=== PATIENT | female | born 1970 | race Caucasian/White ===

== ENCOUNTER → 2019-05-26 08:36 | Outpatient (BNVA) | payer BC, SELFPAY | PROVIDERS: Family Provider Nurse Practitioner Family; Visit Provider Nurse Practitioner Family | DX: I10 Essential (primary) hypertension (principal); E78.5 Hyperlipidemia, unspecified; E11.65 Type 2 diabetes mellitus with hyperglycemia; R53.83 Other fatigue; G47.33 Obstructive sleep apnea (adult) (pediatric); K29.60 Other gastritis without bleeding; J30.2 Other seasonal allergic rhinitis; E03.9 Hypothyroidism, unspecified | CPT/HCPCS: 80053; 80061; 82044; 82306; 83036; 84443; 85025 ==

== ENCOUNTER → 2019-06-16 08:18 | Outpatient (BNVA) | payer BC, SELFPAY | PROVIDERS: Visit Provider Nurse Practitioner Family | DX: E87.1 Hypo-osmolality and hyponatremia (principal) | CPT/HCPCS: 80048 ==

== ENCOUNTER → 2019-06-23 08:27 | Outpatient (BNVA) | payer BC, SELFPAY | PROVIDERS: Visit Provider Nurse Practitioner Family | DX: E87.1 Hypo-osmolality and hyponatremia (principal) | CPT/HCPCS: 80048 ==

== ENCOUNTER → 2019-07-25 11:09 | Outpatient (BNVA) | payer BC, SELFPAY | PROVIDERS: Visit Provider Nurse Practitioner Family | DX: E87.6 Hypokalemia (principal) | CPT/HCPCS: 80053 ==

== ENCOUNTER → 2019-08-23 12:51 | Outpatient (BNVA) | payer BC, SELFPAY | PROVIDERS: Visit Provider Nurse Practitioner Family | DX: E11.65 Type 2 diabetes mellitus with hyperglycemia (principal); E03.9 Hypothyroidism, unspecified | CPT/HCPCS: 36416; 80053; 80061; 82962; 83036; 84443; 85025 ==

== ENCOUNTER → 2019-09-06 09:43 | Outpatient (BNVA) | payer BC, SELFPAY | PROVIDERS: PCP Nurse Practitioner Family; Visit Provider Nurse Practitioner Family | DX: E87.1 Hypo-osmolality and hyponatremia (principal); I10 Essential (primary) hypertension | CPT/HCPCS: 80053 ==

== ENCOUNTER → 2019-09-22 09:18 | Outpatient (BNVA) | payer BC, SELFPAY | PROVIDERS: PCP Nurse Practitioner Family; Visit Provider Nurse Practitioner Family | DX: E87.1 Hypo-osmolality and hyponatremia (principal) | CPT/HCPCS: 80048 ==

== ENCOUNTER → 2020-01-10 10:34 | Outpatient (BNVA) | payer BC, SELFPAY | PROVIDERS: PCP Nurse Practitioner Family; Visit Provider Nurse Practitioner | DX: E11.65 Type 2 diabetes mellitus with hyperglycemia (principal); I10 Essential (primary) hypertension; M50.10 Cervical disc disorder with radiculopathy, unspecified cervical region; J30.1 Allergic rhinitis due to pollen; I63.9 Cerebral infarction, unspecified | CPT/HCPCS: 80053; 80061; 81000; 83036; 84443; 85025 ==

== ENCOUNTER → 2020-04-17 14:16 | Outpatient (BNVA) | payer BC, SELFPAY | PROVIDERS: PCP Nurse Practitioner; Visit Provider Nurse Practitioner | DX: E11.65 Type 2 diabetes mellitus with hyperglycemia (principal); E11.69 Type 2 diabetes mellitus with other specified complication; I10 Essential (primary) hypertension; G47.00 Insomnia, unspecified; E78.5 Hyperlipidemia, unspecified; E87.1 Hypo-osmolality and hyponatremia; E87.6 Hypokalemia; E03.9 Hypothyroidism, unspecified; J30.1 Allergic rhinitis due to pollen; I63.9 Cerebral infarction, unspecified | CPT/HCPCS: 80053; 81003; 83036 ==

== ENCOUNTER → 2020-06-21 12:07 | Outpatient (BNVA) | payer BC, SELFPAY | PROVIDERS: PCP Nurse Practitioner; Visit Provider Nurse Practitioner | DX: L03.90 Cellulitis, unspecified (principal); E11.65 Type 2 diabetes mellitus with hyperglycemia; B37.9 Candidiasis, unspecified; B37.3 Candidiasis of vulva and vagina | CPT/HCPCS: 85025 ==

== ENCOUNTER → 2020-07-16 13:23 | Outpatient (BNVA) | payer OTHER, SELFPAY | PROVIDERS: PCP Nurse Practitioner; Visit Provider Nurse Practitioner | DX: E11.65 Type 2 diabetes mellitus with hyperglycemia (principal); I10 Essential (primary) hypertension; G47.00 Insomnia, unspecified; E11.69 Type 2 diabetes mellitus with other specified complication; E78.5 Hyperlipidemia, unspecified; J30.1 Allergic rhinitis due to pollen; I63.9 Cerebral infarction, unspecified; B37.3 Candidiasis of vulva and vagina; I69.30 Unspecified sequelae of cerebral infarction; E03.9 Hypothyroidism, unspecified; Z91.11 Patient's noncompliance with dietary regimen | CPT/HCPCS: 80053; 80061; 81000; 83036 ==

== ENCOUNTER → 2020-10-01 09:23 | Outpatient (BNVA) | payer OTHER, SELFPAY | PROVIDERS: PCP Nurse Practitioner; Visit Provider Nurse Practitioner | DX: I10 Essential (primary) hypertension (principal); E11.65 Type 2 diabetes mellitus with hyperglycemia; G47.00 Insomnia, unspecified; E11.69 Type 2 diabetes mellitus with other specified complication; E78.5 Hyperlipidemia, unspecified; J30.1 Allergic rhinitis due to pollen; I69.30 Unspecified sequelae of cerebral infarction; B37.3 Candidiasis of vulva and vagina; B37.9 Candidiasis, unspecified; K29.60 Other gastritis without bleeding | CPT/HCPCS: 80053; 81000; 83036 ==

== ENCOUNTER → 2020-12-24 09:09 | Outpatient (BNVA) | payer OTHER, SELFPAY | PROVIDERS: PCP Nurse Practitioner; Visit Provider Nurse Practitioner | DX: E11.65 Type 2 diabetes mellitus with hyperglycemia (principal); I10 Essential (primary) hypertension; B37.3 Candidiasis of vulva and vagina; G47.00 Insomnia, unspecified; E78.5 Hyperlipidemia, unspecified; J30.1 Allergic rhinitis due to pollen; I69.30 Unspecified sequelae of cerebral infarction; S90.416A Abrasion, unspecified lesser toe(s), initial encounter; X58.XXXA Exposure to other specified factors, initial encounter; Z79.4 Long term (current) use of insulin | CPT/HCPCS: 80053; 80061; 81000; 83036; 84443 ==

== ENCOUNTER → 2021-03-18 09:17 | Outpatient (BNVA) | payer OTHER, SELFPAY | PROVIDERS: PCP Nurse Practitioner; Visit Provider Nurse Practitioner | DX: E11.65 Type 2 diabetes mellitus with hyperglycemia (principal) | CPT/HCPCS: 80053; 80061; 81000; 83036 ==

== ENCOUNTER → 2021-06-14 09:32 | Outpatient (BNVA) | payer OTHER, SELFPAY | PROVIDERS: PCP Nurse Practitioner; Visit Provider Nurse Practitioner | DX: E11.65 Type 2 diabetes mellitus with hyperglycemia (principal) | CPT/HCPCS: 80053; 81000; 83036; 84443 ==

== ENCOUNTER → 2021-09-09 08:19 | Outpatient (BNVA) | payer OTHER, SELFPAY | PROVIDERS: PCP Nurse Practitioner; Visit Provider Nurse Practitioner | DX: E11.65 Type 2 diabetes mellitus with hyperglycemia (principal); G47.00 Insomnia, unspecified; E11.69 Type 2 diabetes mellitus with other specified complication; E78.5 Hyperlipidemia, unspecified; I10 Essential (primary) hypertension; J30.1 Allergic rhinitis due to pollen; I69.30 Unspecified sequelae of cerebral infarction; B37.9 Candidiasis, unspecified; Z12.39 Encounter for other screening for malignant neoplasm of breast | CPT/HCPCS: 80053; 80061; 81000; 83036 ==

== ENCOUNTER → 2021-12-02 08:32 | Outpatient (BNVA) | payer OTHER, SELFPAY | PROVIDERS: PCP Nurse Practitioner; Visit Provider Nurse Practitioner | DX: G47.00 Insomnia, unspecified (principal); E11.69 Type 2 diabetes mellitus with other specified complication; E78.5 Hyperlipidemia, unspecified; I10 Essential (primary) hypertension; J30.1 Allergic rhinitis due to pollen; I69.30 Unspecified sequelae of cerebral infarction; E11.65 Type 2 diabetes mellitus with hyperglycemia; B37.9 Candidiasis, unspecified | CPT/HCPCS: 80053; 80061; 83036 ==

== ENCOUNTER → 2022-02-24 08:23 | Outpatient (BNVA) | payer OTHER, SELFPAY | PROVIDERS: PCP Nurse Practitioner; Visit Provider Nurse Practitioner | DX: G47.00 Insomnia, unspecified (principal); E11.69 Type 2 diabetes mellitus with other specified complication; E78.5 Hyperlipidemia, unspecified; I10 Essential (primary) hypertension; J30.1 Allergic rhinitis due to pollen; I69.30 Unspecified sequelae of cerebral infarction; E11.65 Type 2 diabetes mellitus with hyperglycemia; B37.9 Candidiasis, unspecified | CPT/HCPCS: 80053; 80061; 81000; 83036 ==

== ENCOUNTER 2022-03-24 10:59 | Outpatient (CLI) | payer OTHER, SELFPAY ==
--- NOTE | 2022-03-24 11:15 | XR_ITS ---
WS: [id number] Comparison 01/04/2015. No acute fracture or dislocation. Anterior osteophytes at the C6-7 level. Minimal facet DJD. Normal p araspinal soft tissues. Mild straightening. The odontoid is intact. No significant change. XR/XR cervical spine 3V* [id number] IMPRESSION: 1. No fracture or malalignment. 2. Mild degenerative changes. Spondylosis involving the anterior aspect of C6 o n C7.
== END 2022-03-24 11:00 | disposition home or self-care (01) ==
LOC: RAD 11:03
PROVIDERS: PCP Nurse Practitioner; Visit Provider Dermatology
DX: Z02.71 Encounter for disability determination (principal); M47.812 Spondylosis without myelopathy or radiculopathy, cervical region
CPT/HCPCS: 72040

== ENCOUNTER 2022-05-15 12:29 | Emergency (ER) | payer OTHER, SELFPAY ==
[2022-05-15 12:34] VITALS: BP 198/107; PULSE 113; RESP 18; TEMP 36.7; O2SAT 96
--- NOTE | 2022-05-15 12:40 | W.ED.PSYCHS ---
HPI - Psych General: Chief Complaint: Psychiatric Symptoms Stated Complaint: mhe Time Seen by Provider: 05/15/22 12:36 History of Present Illness: Ms Og is a 52-year-old lady with history of strokes, hypertension, diabetes presenting to the emergency department for mental health exam. She reports onset of symptoms proximately 1 week ago and acute with no known specific provoking factor. She describes constant fear with hypervigilance. She is terrified to be alone or even the outside of her living room at this point. She is unsure of what exactly bad would happen but is just waiting for something bad to happen. She reports having to have her gun on her at all times. Denies suicidal or homicidal ideation. She reports perhaps a few short-lived incidents of similar past. She did work as a [employer] dispatcher for approximately 20 years. Intensity symptoms is severe. Course has persisted. No other specific changes in health, exacerbating, or alleviating factors identified. Onset (ago): day(s) Duration: getting worse History of same: Yes Relieving factors: none Exacerbating factors: none Associated psychiatric symptoms: racing thoughts and other Review of Systems General: Reports: 10 or more systems reviewed and unremarkable except in HPI and below PFSH ED PFSH: Medical History Cervical disc disorder with radiculopathy of cervical region DM type 2 with diabetic dyslipidemia History of CVA with residual deficit Insomnia Migraine syndrome KARIN (obstructive sleep apnea) Personal history of nicotine dependence Seasonal allergic rhinitis due to pollen Uncontrolled diabetes mellitus Surgical History History of cholecystectomy History of oral surgery Metal post and frame for denture Family History Other COPD (chronic obstructive pulmonary disease) Cancer Cerebral palsy Diabetes Heart disease Myocardial infarct Stroke Social History Smoking and tobacco status: current every day smoker cigarettes Packs smoked per day: 0.5 Years cigarettes smoked: 17 Second hand smoke exposure: No Smoking risk assessment/counseling performed?: Yes Alcohol intake: never Desire information about alcohol rehabilitation?: No Counseling given: No Desire information about substance/drug rehabilitation?: No Counseling given: No Adopted: Yes Caregiver/support person: No Lives independently: Yes Household members: spouse Housing: House Marital status: Number of children: 0 Number of grandchildren: 0 service: No Current occupational status: unemployed Current gender identity: Female Special melisa needs: No Agree to transfusion: Yes Physical Exam Const: COMMON NORMALS: alert GENERAL APPEARANCE: cooperative and well developed HENMT: COMMON NORMALS: normocephalic and atraumatic HEAD & SCALP: normocephalic and atraumatic Eye: COMMON NORMALS: conjunctivae normal CONJUNCTIVA: Yes conjunctivae normal SCLERA: sclerae normal Neck/C-Spine: COMMON NORMALS: supple GENERAL: Yes trachea midline Resp: COMMON NORMALS: clear to auscultation bilaterally EFFORT & INSPECTION: Yes able to speak in complete sentences AUSCULTATION: clear to auscultation bilaterally Cardio: COMMON NORMALS: regular rate and regular rhythm RATE: regular rate RHYTHM: regular rhythm GI: COMMON NORMALS: Soft to palpation PALPATION: Yes Soft to palpation and No Tenderness to palpation present (GI) Extremity: GENERAL: Yes normal exam except as noted and No edema Neuro: COMMON NORMALS: moves all extremities SENSORIUM/ORIENTATION: Yes alert and No Orientation impaired Psych: COMMON NORMALS: mental status grossly normal and Normal thought process present MOOD & AFFECT: Yes anxious THOUGHT PROCESS: Normal thought process present Course Vital Signs: Vital signs: Vital Signs Temperature 98.1 F 05/15/22 12:34 Pulse Rate 113 H 05/15/22 12:34 Respiratory Rate 18 05/15/22 12:34 Blood Pressure 198/107 05/15/22 12:34 Pulse Oximetry 96 05/15/22 12:34 Oxygen Delivery Me thod 05/15/22 12:34 MDM - Psych Medical Decision Making 52-year-old lady presenting for psychiatric evaluation. She notes marked worry and fear that is interfering with daily life. She denies suicidal intent or homicidal intent. EKG notable for sinus rhythm with tachycardia, nonspecific ST segment abnormalities, normal axis and intervals, no STEMI. Labs with hemoconcentration and evidence of dehydration. No evidence of UTI given squamous epithelial contamination. Toxic ingestions and viral panel negative. The results of ED evaluation were discussed with patient. I offered various disposition options including inpatient management given severity of symptoms, crisis center walk-in, or psychiatry consult. The patient does not wish to be admitted and has commitments at home. Psychiatry service consulted and we will initiate medications and have plan for follow-up. I discussed prescriptions and/or symptomatic cares (if applicable) including appropriate and responsible use, followup plan, and return precautions. The patient verbalized understanding and felt safe for discharge. Medical Records I reviewed the patient's medical records. Lab Data I reviewed the patient's lab results. 05/15/22 13:20 05/15/22 13:20 Laboratory Results WBC 15.1 10^3/uL (4.0-10.0) H 05/15/22 13:20 RBC 6.87 10^6/uL (4.1-5.3) H 05/15/22 13:20 Hgb 19.3 g/dL (11.5-15.3) H 05/15/22 13:20 Hct 58.6 % (37.0-47.0) H 05/15/22 13:20 MCV 85.3 fl (81-99) 05/15/22 13:20 MCH 28.1 pg (28.0-34.0) 05/15/22 13:20 MCHC 32.9 g/dL (30.0-36.0) 05/15/22 13:20 RDW 16.6 % (12.1-15.1) H 05/15/22 13:20 Plt Count 410 10^3/cmm (130-400) H 05/15/22 13:20 MPV 9.6 fL (7.4-10.4) 05/15/22 13:20 Neut % (Auto) 62.1 % 05/15/22 13:20 Lymph % (Auto) 29.5 % 05/15/22 13:20 [place] % (Auto) 7.2 % 05/15/22 13:20 Eos % (Auto) 0.2 % 05/15/22 13:20 Baso % (Auto) 0.4 % 05/15/22 13:20 Neut # (Auto) 9.35 10^3/uL (1.8-7.7) H 05/15/22 13:20 Lymph # (Auto) 4.5 10^3/uL (0.8-4.8) 05/15/22 13:20 [place] # (Auto) 1.1 10^3/uL (0.2-0.9) H 05/15/22 13:20 Eos # (Auto) 0.0 10^3/uL (0.0-0.8) 05/15/22 13:20 Baso # (Auto) 0.1 10^3/uL (0.0-0.1) 05/15/22 13:20 Nucleated RBC % (auto) 0 % 05/15/22 13:20 Nucleated RBCs # 0.0 /100WBC 05/15/22 13:20 Sodium 134 mmol/L (136-145) L 05/15/22 13:20 Potassium 3.6 mmol/L (3.5-5.1) 05/15/22 13:20 Chloride 94 mmol/L (98-107) L 05/15/22 13:20 Carbon Dioxide 25 mmol/L (22-29) 05/15/22 13:20 Anion Gap 18.6 (5-19) 05/15/22 13:20 BUN 27 mg/dL (6-20) H 05/15/22 13:20 Creatinine 1.1 mg/dL (0.5-0.9) H 05/15/22 13:20 GFR Calculation 52.0 mL/min (90-130) L 05/15/22 13:20 Glucose 218 mg/dL (65-115) H 05/15/22 13:20 Calculated Osmolality 290 mOsm/kg (285-295) 05/15/22 13:20 Calcium 9.7 mg/dL (8.5-10.5) 05/15/22 13:20 Total Bilirubin 0.7 mg/dL (0.15-1.2) 05/15/22 13:20 AST 20 U/L (0-32) 05/15/22 13:20 ALT 23 U/L (0-33) 05/15/22 13:20 Alkaline Phosphatase 129 U/L (35-105) H 05/15/22 13:20 Total Protein 8.0 g/dL (6.6-8.7) 05/15/22 13:20 Albumin 4.1 g/dL (3.5-5.2) 05/15/22 13:20 Globulin 3.9 g/dL (1.3-4.6) 05/15/22 13:20 TSH 1.32 uIU/mL (0.27-4.20) 05/15/22 13:20 HCG, Qual Negative (Negative) 05/15/22 15:50 Urine Color Yellow (Yellow) 05/15/22 15:50 Urine Appearance Cloudy (CLEAR) A 05/15/22 15:50 Urine pH 5 (5-7) 05/15/22 15:50 Ur Specific Heath 1.020 (1.005-1.030) 05/15/22 15:50 Urine Protein 2+ (Negative) H 05/15/22 15:50 Urine Glucose (UA) 4+ (Normal) H 05/15/22 15:50 Urine Ketones Negative (Negative) 05/15/22 15:50 Urine Blood Neg (Negative) 05/15/22 15:50 Urine Nitrate Negative (Negative) 05/15/22 15:50 Urine Bilirubin Neg (Negative) 05/15/22 15:50 Urine Urobilinogen 1 mg/dL (Negative) H 05/15/22 15:50 Ur Leukocyte Esterase Negative (Negative) 05/15/22 15:50 Urine RBC 0-4 /hpf (0-2) H 05/15/22 15:50 Urine WBC 0-4 /hpf (0-5) H 05/15/22 15:50 Ur Squamous Epith Cells 15-25 /hpf (0-5) H 05/15/22 15:50 Amorphous Sediment 4+ /hpf 05/15/22 15:50 Urine Bacteria 2+ /hpf (NONE) H 05/15/22 15:50 Urine Yeast 2+ /hpf H 05/15/22 15:50 Salicylates 0.6 mg/dL (3-10) L 05/15/22 13:20 Urine Opiates Screen Negative ng/mL (Negative) 05/15/22 15:50 Acetaminophen < 5.0 ug/mL (10-30) L 05/15/22 13:20 Ur Barbiturates Screen Negative ng/mL (Negative) 05/15/22 15:50 Ur Phencyclidine Scrn Negative ng/mL (Negative) 05/15/22 15:50 Ur Amphetamines Screen Negative ng/mL (Negative) 05/15/22 15:50 U Benzodiazepines Scrn Negative ng/mL (Negative) 05/15/22 15:50 Urine Cocaine Screen Negative ng/mL (Negative) 05/15/22 15:50 U Marijuana (THC) Screen Negative ng/mL (Negative) 05/15/22 15:50 Ethyl Alcohol < 10 mg/dL (0-10) 05/15/22 13:20 Influenza Type A Ag negative (Negative) 05/15/22 16:00 Influenza Type B Ag negative (Negative) 05/15/22 16:00 SARS-CoV-2 Ag (Rapid) negative (Negative) 05/15/22 16:00 Discharge Plan Discharge Patient Disposition: Home Clinical Impression: Anxiety, Dehydration Condition: Stable Prescriptions: New buspirone 7.5 mg tablet 7.5 mg PO BID Qty: 45 0RF No Action omega 5-sin-yfg-fish oil [Fish Oil] 1,000 mg (120 mg-180 mg) capsule 1 cap PO DAILY aspirin [Adult Low Dose Aspirin] 81 mg tablet,delayed release (DR/EC) 81 mg PO DAILY (DME) pen needle, diabetic 33 gauge x 5/32 needle See Rx Instructions .ROUTE .MEDSUPPLY Qty: 100 5RF Rx Instructions: 4 times day tramadol 50 mg tablet 50 mg PO BID PRN (Reason: Pain) Label Comments: From Pain management amitriptyline 25 mg tablet 25 mg PO BEDTIME Qty: 30 2RF atorvastatin 40 mg tablet 40 mg PO QPM Qty: 30 2RF carvedilol 25 mg tablet 25 mg PO BID Qty: 60 2RF cetirizine [Zyrtec] 10 mg tablet 10 mg PO DAILY Qty: 30 2RF clonidine HCl 0.1 mg tablet 0.1 mg PO Q12H Qty: 60 2RF clopidogrel 75 mg tablet 75 mg PO DAILY Qty: 30 2RF Jardiance 10 mg tablet 10 mg PO QAM Qty: 30 2RF insulin aspart U-100 [Novolog FlexPen U-100 Insulin] 100 unit/mL (3 mL) insulin pen 5 unit SUBCUT TID Qty: 15 0RF Rx Instructions: 110-129= [id number]= 6u 151-200= 9u 201-250= 12u 251-766=[id number]=97e>400=24u Levemir FlexTouch U-100 Insuln 100 unit/mL (3 mL) insulin pen See Rx Instructions SUBCUT DAILY Qty: 30 2RF Rx Instructions: up to 100 units SUBCUT daily; nystatin 100,000 unit/gram powder 1 applic topical BID Qty: 60 2RF Rx Instructions: apply to axilla, under breast and groin potassium chloride [Klor-Con 10] 10 mEq tablet extended release 10 meq PO DAILY 30 Days Qty: 30 2RF Ozempic 0.25 mg or 0.5 mg(2 mg/1.5 mL) pen injector 0.25 mg SUBCUT .weekly Qty: 1.5 2RF valsartan [Diovan] 320 mg tablet 320 mg PO DAILY Qty: 30 2RF hydrocodone-acetaminophen 5-325 mg tablet 0.5 - 1 tab PO Q24H PRN (Reason: Pain) Vitamin D3 25 mcg (1,000 unit) Capsule 25 mcg PO DAILY 28 mg iron- 800 mcg Tablet 1 tab PO DAILY Discharge Orders: Discharge ED (Routine); Ordered 05/15/22 Ordered By: Rob Beltran Referrals: Junior Ayers, SIGN LANGUAGE TEACHER-C [Primary Care Provider] - Discharge Diet: Usual diet Discharge Activity: Increase activity as tolerated Patient Instructions: Buspirone (By mouth), Dehydration (ED), Anxiety (ED) Activity Restrictions/Additional Instructions: Thank you for visiting the emergency department. You were seen and evaluated for abnormal feeling and anxiety. The exact cause your symptoms is unclear. You were found to have dehydration. You will be started on buspirone, start with 1 tablet (7.5 mg) twice daily and in discussion with your primary care provider you may require increase. [facility] [phone] If you or someone you care for is experiencing a psychiatric emergency, please call the crisis hotline ([employer]) 24-hours a day, 7 days a week at [phone]. The crisis stabilization center has walk-in availability 7 days/week from 11 AM to 9 PM. This is located on the hospital campus on the [address] side. There is a sign over the entrance. Return to the emergency department for suicidal thoughts, any new neurologic symptoms, inability tolerate oral intake, or anything else that you are concerned about and feel needs emergency room evaluation. Coding Level of Care Code ED Linux Programmer for Abilio Goodwin
--- NOTE | 2022-05-15 12:50 | ECG_ITS ---
[facility] Test Date: 2022-05-15 Pat Name: Ely Og Department: Room: Gender: Female Home Health Care Respiratory Therapist: : 1970 Requested By: Rob Beltran Order Number: [id number] Zak MD: Viridiana Kelly M.D. Measurements Intervals [place] Rate: 109 P: 12 NV: 124 QRS: 61 QRSD: 98 T: 36 QT: 341 QTc: 461 Interpretive Statements SINUS TACHYCARDIA ABNORMAL RHYTHM ECG Compared to ECG 12/06/2017 01:17:36 Sinus rhythm no longer present T-wave abnormality no longer present Electronically Signed On 05-16-2022 7:55:39 ROUTE CONTRACTOR by Viridiana Kelly M.D. [id number]
[2022-05-15 13:38] LABS: Basophils # 0.1 10^3/uL (0.0-0.1); Basophils % 0.4 %; Eosinophils % 0.2 %; Hematocrit 58.6 % (37.0-47.0); Hemoglobin 19.3 g/dL (11.5-15.3); Lymphocytes # 4.5 10^3/uL (0.8-4.8); Lymphocytes % 29.5 %; Mean Corpuscular HGB Conc 32.9 g/dL (30.0-36.0); Mean Corpuscular Hemoglobin 28.1 pg (28.0-34.0); Mean Corpuscular Volume 85.3 fl (81-99); Mean Platelet Volume 9.6 fL (7.4-10.4); Monocytes # 1.1 10^3/uL (0.2-0.9); Monocytes % 7.2 %; Neutrophils # 9.35 10^3/uL (1.8-7.7); Neutrophils % 62.1 %; Nucleated Red Blood Cells % 0 %; Platelet Count 410 10^3/cmm (130-400); Red Blood Count 6.87 10^6/uL (4.1-5.3); Red Cell Distribution Width 16.6 % (12.1-15.1); White Blood Count 15.1 10^3/uL (4.0-10.0)
[2022-05-15] MEDS: LORazepam 0.5 mg Tablet PO (14:02)
[2022-05-15 14:11] LABS: Alanine Aminotransferase 23 U/L (0-33); Albumin Level 4.1 g/dL (3.5-5.2); Alkaline Phosphatase 129 U/L (35-105); Anion Gap 18.6 (5-19); Aspartate Amino Transferase 20 U/L (0-32); Blood Urea Nitrogen 27 mg/dL (6-20); Calcium 9.7 mg/dL (8.5-10.5); Carbon Dioxide 25 mmol/L (22-29); Chloride 94 mmol/L (98-107); Globulin 3.9 g/dL (1.3-4.6); Glucose 218 mg/dL (65-115); Osmolality Calculated 290 mOsm/kg (285-295); Potassium 3.6 mmol/L (3.5-5.1); Salicylate 0.6 mg/dL (3-10); Sodium 134 mmol/L (136-145); Thyroid Stimulating Hormone 1.32 uIU/mL (0.27-4.20); Total Bilirubin 0.7 mg/dL (0.15-1.2)
[2022-05-15 14:13] LABS: Acetaminophen < 5.0 ug/mL (10-30); Alcohol Level < 10 mg/dL (0-10)
[2022-05-15] MEDS: sodium chloride 0.9% 1,000 ML 999 ML IV (16:23)
[2022-05-15 16:25] LABS: HCG Qualitative Urine. Negative (Negative)
[2022-05-15 16:42] LABS: SARS Covid-2 Antigen negative (Negative)
[2022-05-15 17:02] LABS: Influenza A by IFA negative (Negative); Influenza B by IFA negative (Negative)
[2022-05-15 20:14] LABS: Amphetamines Screen Urine Negative (Negative); Barbiturates Screen Urine Negative (Negative); Benzodiazepines Screen Urine Negative (Negative); Cocaine Screen Urine Negative (Negative); Opiate Screen Urine Negative (Negative); PCP Screen Urine Negative (Negative); THC Screen Urine Negative (Negative)
[2022-05-15 20:54] LABS: Add Urine Culture? Yes; Add Urine Microscopic? YES; Amorphous Sediment Urine 4+ /hpf; Bacteria Urine 2+ /hpf; Bilirubin Urine Neg (Negative); Blood Urine Neg (Negative); Glucose Urine UA 4+ (Normal); Ketones Urine Negative (Negative); Leukocyte Esterase Urine Negative (Negative); Nitrate Urine Negative (Negative); Protein Urine 2+ (Negative); RBC Urine 0-4 /hpf (0-2); Squamous Epithelial Cell Urine 15-25 /hpf (0-5); Urine Appearance Cloudy (CLEAR); Urine Color Yellow (Yellow); Urobilinogen Urine 1 mg/dL (Negative); WBC Urine 0-4 /hpf (0-5); pH Urine 5 (5-7)
== END 2022-05-15 18:00 | disposition home or self-care (01) ==
PROVIDERS: Emergency Provider Emergency Medicine; PCP Nurse Practitioner
DX: F41.9 Anxiety disorder, unspecified (principal); E86.0 Dehydration; Z79.82 Long term (current) use of aspirin; Z79.02 Long term (current) use of antithrombotics/antiplatelets; Z79.4 Long term (current) use of insulin; Z20.822 Contact with and (suspected) exposure to COVID-19; E11.9 Type 2 diabetes mellitus without complications; Z86.73 Personal history of transient ischemic attack (TIA), and cerebral infarction without residual deficits; F17.210 Nicotine dependence, cigarettes, uncomplicated
CPT/HCPCS: 36415; 80053; 80306; 80307; 81001; 81025; 84443; 85025; 87086; 87426; 87804; 93005; 96360; 99285; J7030

== ENCOUNTER → 2022-05-23 11:26 | Outpatient (BNVA) | payer OTHER, SELFPAY | PROVIDERS: PCP Nurse Practitioner; Visit Provider Nurse Practitioner | DX: E11.69 Type 2 diabetes mellitus with other specified complication (principal); E78.5 Hyperlipidemia, unspecified; E11.65 Type 2 diabetes mellitus with hyperglycemia; E55.9 Vitamin D deficiency, unspecified; M50.10 Cervical disc disorder with radiculopathy, unspecified cervical region; I10 Essential (primary) hypertension; J30.1 Allergic rhinitis due to pollen; I69.30 Unspecified sequelae of cerebral infarction; B37.9 Candidiasis, unspecified | CPT/HCPCS: 80053; 80061; 81000; 82306; 83036; 85025 ==

== ENCOUNTER → 2022-08-15 11:42 | Outpatient (BNVA) | payer OTHER, SELFPAY | PROVIDERS: PCP Nurse Practitioner; Visit Provider Nurse Practitioner | DX: E11.65 Type 2 diabetes mellitus with hyperglycemia (principal) | CPT/HCPCS: 80053; 83036 ==

== ENCOUNTER → 2022-11-07 08:23 | Outpatient (BNVA) | payer OTHER, SELFPAY | PROVIDERS: PCP Nurse Practitioner; Visit Provider Nurse Practitioner | DX: E55.9 Vitamin D deficiency, unspecified (principal); E11.65 Type 2 diabetes mellitus with hyperglycemia; I10 Essential (primary) hypertension; J30.1 Allergic rhinitis due to pollen; I69.30 Unspecified sequelae of cerebral infarction | CPT/HCPCS: 80053; 80061; 81000; 82306; 83036; 83721; 84443; 85025 ==

== ENCOUNTER → 2023-02-05 10:50 | Outpatient (BNVA) | payer OTHER, SELFPAY | PROVIDERS: PCP Nurse Practitioner; Visit Provider Nurse Practitioner | DX: E03.9 Hypothyroidism, unspecified (principal); E11.65 Type 2 diabetes mellitus with hyperglycemia; I10 Essential (primary) hypertension; J30.1 Allergic rhinitis due to pollen; I69.30 Unspecified sequelae of cerebral infarction; E11.69 Type 2 diabetes mellitus with other specified complication; E78.5 Hyperlipidemia, unspecified | CPT/HCPCS: 80053; 80061; 82306; 83036; 84443; 85025 ==

== ENCOUNTER → 2023-05-07 09:20 | Outpatient (BNVA) | payer OTHER, SELFPAY | PROVIDERS: PCP Nurse Practitioner; Visit Provider Nurse Practitioner | DX: I10 Essential (primary) hypertension (principal); J30.1 Allergic rhinitis due to pollen; I69.30 Unspecified sequelae of cerebral infarction; E11.65 Type 2 diabetes mellitus with hyperglycemia; Z79.4 Long term (current) use of insulin; E11.69 Type 2 diabetes mellitus with other specified complication; E78.5 Hyperlipidemia, unspecified; E11.9 Type 2 diabetes mellitus without complications | CPT/HCPCS: 80053; 81000; 83036 ==

== ENCOUNTER 2023-06-18 09:36 | Inpatient (IN) | payer OTHER, SELFPAY ==
[2023-06-18] VITALS (50 sets, daily range): BP systolic 145–237; BP diastolic 80–135; PULSE 68–94; RESP 10–23; TEMP 36.6–36.9; O2SAT 88–98; BMI 33.3; BMI 31.4
--- NOTE | 2023-06-18 09:15 | ECG_ITS ---
[facility] Test Date: 2023-06-18 Pat Name: Ely Og Department: Room: Gender: Female Software Integrator: : 1970 Requested By: Tuan Harrington Order Number: [id number] Zak MD: David Lawson M.D. Measurements Intervals [place] Rate: 85 P: 60 [place]: 173 QRS: 88 QRSD: 102 T: 46 QT: 402 QTc: 480 Interpretive Statements SINUS RHYTHM POSSIBLE LEFT ATRIAL ENLARGEMENT [-0.1mV P-WAVE IN V1/V2] Compared to ECG 05/15/2022 14:42:29 Sinus tachycardia no longer present Electronically Signed On 06-18-2023 15:19:32 CDT by David Lawson M.D. [id number]
--- NOTE | 2023-06-18 09:38 | CT_ITS ---
WS: [id number] CT HEAD NONCONTRAST HISTORY: Symptoms of acute stroke TECHNIQUE: Contiguous axial imaging performed through the brain in 2.5 mm imaging. Bone and soft tiss ue windows. Sagittal and coronal reformats reviewed. All CT scans at [facility] use at least one of these dose optimization techniques: automated exposure control; mA and/or kV adjustment per pa tient size (includes targeted exams where dose is matched to clinical indication); or iterative recon struction. DLP: 1009.33 mGy COMPARISON: 12/05/2017 No acute intracranial hemorrhage, midline shift or mass effect. Moderate atrophy. Moderate sized prior infarct RIGHT occipital lobe with extension into the posterior temporal lobe.. Small lacunar infarct LEFT caudate head. No acute area of effacement. Small lacunar infarct in the RIGHT flores. Ventricles: Mild ex vacuo dilatation occipital horn of the RIGHT lateral ventricle. No inferior displacement of the cerebellar tonsils. Paranasal sinuses: As visualized are clear. Mastoid air cells: Well pneumatized. Calvarium and scalp: Skull is intact with no soft tissue edema or swelling. Heavy calcified plaque in the distal vertebral and the intracranial carotid arteries. IMPRESSION: 1. No acute intracranial hemorrhage or edema. 2. Remote large infarct in the RIGHT occipital and temporal lobes with ex vacuo dilatation of the la teral ventricle. 3. Small lacunar infarct in the RIGHT flores and the LEFT caudate, chronic. 4. Extensive calcification noted in the distal vertebral arteries and intracranial carotid arteries. Notified Tuan Boyd DO at 06/18/2023 10:11 AM.
--- NOTE | 2023-06-18 09:51 | CT_ITS ---
WS: [id number] CT ANGIOGRAM CEREBRAL AND CAROTID ARTERIES HISTORY: sub-acute CVA TECHNIQUE: CT angiogram is performed of the carotid and cerebral arteries. During arterial injection imaging is obtained from the skull vertex to the aortic arch in 1.25 mm imaging. Coronal and sagittal reformats are submitted. Additional multi planar reformats of the carotid and cerebral arteries are submitted, MIP imaging also reviewed. NASCET criteria utilized. [facility] at least one of these dose optimization techniques: automated exposure control; mA and/or kV adjust ment per patient size (includes targeted exams where dose is matched to clinical indication); or iter ative reconstruction. CONTRAST: Omnipaque 350; 100 mL IV. DLP: 453.42 mGy.cm COMPARISON: None available. Carotid Angiogram: Right carotid: Common carotid artery: Arises normally from the innominate artery. No significant plaque or stenosis. Internal carotid artery: Mild intimal thickening with plaque at the bifurcation. Stenosis estimated n ear 50%. External carotid artery: Patent. Left carotid: Common carotid artery: Arises normally from the aorta. No significant plaque or stenosis. Internal carotid artery: Mild intimal thickening and plaque at the bifurcation. No high-grade stenosi s. External carotid artery: Patent. Right vertebral artery: Few calcified plaques proximal vertebral artery. No occlusion. Left vertebral artery: Small caliber. Arises from the arch. Subclavian arteries: No stenosis or significant abnormality. Upper thorax: Normal. Thyroid gland: RIGHT thyroid nodules. Osseous structures: Large osteophytes at C6-7 encroaching upon the ventral thecal sac. CEREBRAL ANGIOGRAM: Intracranial vertebral arteries: Dominant RIGHT vertebral artery with a small amount of calcified leeanna que. No occlusion. There is a high-grade stenosis in the distal vertebral artery. Normal LEFT vertebr al artery. Basilar artery: No significant stenosis or occlusion. No aneurysm. Intracranial Internal carotid arteries: Dense calcified plaque to the cavernous sinuses and supraclin oid. High-grade stenosis bilaterally. Suspect near complete occlusion LEFT supraclinoid. Middle cerebral arteries: LEFT MCA is smaller in caliber than the RIGHT no occlusion or aneurysm. Anterior cerebral arteries and ACOM: Normal. Posterior cerebral arteries and PCOM's: Very small caliber RIGHT posterior cerebral artery. Dominant LEFT posterior cerebral artery. Dural venous sinuses are normally enhancing. Mastoid air cells: Normal. Paranasal sinuses: Normal. Calvarium: Normal. IMPRESSION: 1. RIGHT cervical ICA stenosis 50%. 2. No significant stenosis LEFT cervical ICA. 3. High-grade stenosis of the distal RIGHT vertebral artery due to calcified plaque. 4. Atherosclerotic plaque in the intracranial carotid arteries with high-grade stenosis, near comple te occlusion supraclinoid LEFT ICA. 5. Very small caliber and diminished RIGHT POLICE ARTIST. No acute thrombus identified. 6. Small caliber LEFT MCA but it is patent.
--- NOTE | 2023-06-18 09:51 | W.ED.NEUROSD ---
HPI - Neuro Symptoms/Deficit General: Chief Complaint: Neuro Symptoms/Deficit Stated Complaint: slurred speech, unstable Time Seen by Provider: 06/18/23 09:38 Source: patient Mode of arrival: ambulatory History of Present Illness: 53-year-old female presents emergency room with strokelike symptoms began yesterday around 3 in the afternoon. She reports previous history of multiple strokes. Yesterday began having difficulty with right-sided facial droop word finding and slurring of her words as well as right-sided weakness and some right-sided ataxia. Is persisted into today. They opted not to be seen yesterday. They went gone to ophthalmology for a routine exam today and her symptoms were noted she was directed to the emergency room. Per their insistence they came by private vehicle. She did have her eyes dilated while at ophthalmology. She denies any chest pain or shortness of breath at this time. [facility] PFSH: Medical History (Updated 06/18/23 @ 11:30 by Tuan Boyd DO) Diabetes mellitus with hyperglycemia, with long-term current use of insulin History of CVA with residual deficit Insomnia DM type 2 with diabetic dyslipidemia Migraine syndrome Personal history of nicotine dependence Seasonal allergic rhinitis due to pollen Cervical disc disorder with radiculopathy of cervical region KARIN (obstructive sleep apnea) Surgical History History of cholecystectomy History of oral surgery Metal post and frame for denture Family History Other COPD (chronic obstructive pulmonary disease) Cancer Cerebral palsy Diabetes Heart disease Myocardial infarct Stroke Social History Smoking and tobacco/nicotine status: current every day tobacco/nicotine user cigarettes Packs smoked per day: 0.5 Years cigarettes smoked: 17 Second hand smoke exposure: No Alcohol intake: never Substance/Drug Use: never Adopted: Yes Caregiver/support person: No Lives independently: Yes Household members: spouse Housing: House Marital status: Number of children: 0 Number of grandchildren: 0 service: No Current occupational status: unemployed Do you think of yourself as: Straight/Heterosexual Current gender identity: Female Special melisa needs: No Agree to transfusion: Yes NIH stroke score NIHSS: Level Of Consciousness - 1a: 0 Level Of Consciousness Questions - 1b: Both Correct Level Of Consciousness Commands - 1c: Both Correct Best Gaze - 2: Normal Visual Coyne - 3: No Visual Loss Facial Palsy - 4: Minor Paralysis Motor Arm Right - 5: No Drift Motor Arm Left - 5: No Drift Motor Leg Right - 6: No Drift Motor Leg Left - 6: No Drift Limb Ataxia - 7: Present In Two Limbs Sensory - 8: Normal Best Language - 9: Mild/Moderate Aphasia Dysarthia - 10: Mild/Moderate Dysarthia Extinction And Inattention - 11: 0 Score: Total Score: 5 Course Vital Signs: Vital signs: Vital Signs Temperature 97.8 F 06/18/23 09:43 Pulse Rate 82 06/18/23 11:02 Respiratory Rate 16 06/18/23 09:43 Blood Pressure 201/109 06/18/23 11:02 Pulse Oximetry 90 06/18/23 11:02 Oxygen Delivery Me thod Room Air 06/18/23 11:02 MDM - Neuro Symptoms/Deficit Medical Decision Making Subacute CVA. CT head and CTA head and neck do not show any acute occlusions. There is evidence of old infarcts no active bleeds. She has not been taking her medicines for the last several weeks or more including upper clopidogrel. Blood pressure is markedly elevated even after labetalol she is still running blood pressures in the 220s and 230s started on nicardipine will admit to the ICU for accelerated hypertension and subacute CVA. At time of mission she still has some right-sided ataxia weakness and dysarthria. She is outside the window for thrombolytics and not a candidate for thrombectomy and CTAs negative. Discussed with hospitalist orders are written. Reviewed findings with the family as well and they are in agreement of plan. Medical Records I reviewed the patient's medical records. Lab Data I reviewed the patient's lab results. 06/18/23 10:09 06/18/23 10:09 Laboratory Results WBC 12.27 10^3/uL (3.29-11.43) H 06/18/23 10:09 RBC 5.99 10^6/uL (3.85-5.65) H 06/18/23 10:09 Hgb 17.70 g/dL (11.27-16.99) H 06/18/23 10:09 Hct 52.7 % (36-47) H 06/18/23 10:09 MCV 88.0 fl (85-98) 06/18/23 10:09 MCH 29.5 pg (27-33) 06/18/23 10:09 MCHC 33.6 g/dL (30-55) 06/18/23 10:09 RDW 14.7 % (12.1-15.1) 06/18/23 10:09 Plt Count 314 10^3/cmm (157-399) 06/18/23 10:09 MPV 9.5 fL (7.4-10.4) 06/18/23 10:09 Neut % (Auto) 71.6 % 06/18/23 10:09 Lymph % (Auto) 22.3 % 06/18/23 10:09 Patrick % (Auto) 4.7 % 06/18/23 10:09 Eos % (Auto) 0.7 % 06/18/23 10:09 Baso % (Auto) 0.4 % 06/18/23 10:09 Neut # (Auto) 8.77 10^3/uL (1.8-7.7) H 06/18/23 10:09 Lymph # (Auto) 2.7 10^3/uL (0.8-4.8) 06/18/23 10:09 Patrick # (Auto) 0.6 10^3/uL (0.2-0.9) 06/18/23 10:09 Eos # (Auto) 0.1 10^3/uL (0.0-0.8) 06/18/23 10:09 Baso # (Auto) 0.1 10^3/uL (0.0-0.1) 06/18/23 10:09 Nucleated RBC % (auto) 0 % 06/18/23 10:09 Nucleated RBCs # 0.0 /100WBC 06/18/23 10:09 PT 13.30 SECONDS (12.1-14.9) 06/18/23 10:09 INR 0.98 (0.8-1.2) 06/18/23 10:09 APTT 32.2 SECONDS (23.9-36.7) 06/18/23 10:09 Sodium 139 mmol/L (136-145) 06/18/23 10:09 Potassium 3.1 mmol/L (3.5-5.1) L 06/18/23 10:09 Chloride 99 mmol/L (98-107) 06/18/23 10:09 Carbon Dioxide 29 mmol/L (22-29) 06/18/23 10:09 Anion Gap 14.1 (5-19) 06/18/23 10:09 BUN 12 mg/dL (6-20) 06/18/23 10:09 Creatinine 1.1 mg/dL (0.5-0.9) H 06/18/23 10:09 GFR Calculation 51.8 mL/min (90-130) L 06/18/23 10:09 Glucose 112 mg/dL (65-115) 06/18/23 10:09 POC Glucose 120 mg/dL (70-110) H 06/18/23 10:11 Calculated Osmolality 289 mOsm/kg (285-295) 06/18/23 10:09 Calcium 9.5 mg/dL (8.5-10.5) 06/18/23 10:09 Total Bilirubin 0.7 mg/dL (0.15-1.2) 06/18/23 10:09 AST 16 U/L (0-32) 06/18/23 10:09 ALT 10 U/L (0-33) 06/18/23 10:09 Alkaline Phosphatase 132 U/L (35-105) H 06/18/23 10:09 Total Protein 7.2 g/dL (6.6-8.7) 06/18/23 10:09 Albumin 3.8 g/dL (3.5-5.2) 06/18/23 10:09 Globulin 3.4 g/dL (1.3-4.6) 06/18/23 10:09 All radiology interpretation(s) finalized by discharge Discharge Plan Discharge Patient Disposition: Admitted As Inpatient Clinical Impression: Acute CVA (cerebrovascular accident), DM type 2 with diabetic dyslipidemia, History of CVA with residual deficit, KARIN (obstructive sleep apnea), Hypothyroid, Accelerated hypertension Condition: Stable Prescriptions: No Action insulin glargine [Lantus Solostar U-100 Insulin] 100 unit/mL (3 mL) insulin pen See Rx Instructions SUBCUT QAM Qty: 30 2RF Rx Instructions: up to 100 Units subcutaneously every morning (DME) pen needle, diabetic 33 gauge x 5/32 needle See Rx Instructions .ROUTE .MEDSUPPLY Qty: 100 5RF Rx Instructions: 4 times day hydrocodone-acetaminophen 5-325 mg tablet 1 tab PO QPM Tylenol Ex Str Rapid Release 500 mg Tablet 1,000 mg PO Q6H PRN (Reason: Pain) Ozempic 0.25 mg or 0.5 mg (2 mg/3 mL) pen injector 0.5 mg SUBCUT Q7D Rx Instructions: on sat Referrals: Junior Ayers, CURING ROOM SUPERVISOR-C [Primary Care Provider] - Coding Level of Care Code ED Photo Tech for [facility] [employer]
[2023-06-18] MEDS: iohexol 350 mg/mL 500 mL Btl (per mL) IV (10:13)
[2023-06-18 10:15] LABS: Basophils # 0.1 10^3/uL (0.0-0.1); Basophils % 0.4 %; Eosinophils # 0.1 10^3/uL (0.0-0.8); Eosinophils % 0.7 %; Hematocrit 52.7 % (36-47); Lymphocytes # 2.7 10^3/uL (0.8-4.8); Lymphocytes % 22.3 %; Mean Corpuscular HGB Conc 33.6 g/dL (30-55); Mean Corpuscular Hemoglobin 29.5 pg (27-33); Mean Platelet Volume 9.5 fL (7.4-10.4); Monocytes # 0.6 10^3/uL (0.2-0.9); Monocytes % 4.7 %; Neutrophils # 8.77 10^3/uL (1.8-7.7); Neutrophils % 71.6 %; Nucleated Red Blood Cells % 0 %; Platelet Count 314 10^3/cmm (157-399); Red Blood Count 5.99 10^6/uL (3.85-5.65); Red Cell Distribution Width 14.7 % (12.1-15.1); White Blood Count 12.27 10^3/uL (3.29-11.43)
[2023-06-18 10:19] LABS: Glucose Point of Care 120 mg/dL (70-110)
--- NOTE | 2023-06-18 10:24 | PC.PHAR ---
pts verified pts medications-pts states the pt hasnt been taking her medications for at least 3 months-states the pt is only taking hydrocodone-acetaminophen 5-325mg one tab po qpm (rx filled 05/19/23 0.5 to 1 tab q12h prn)-lantus solostar up to 100 units qam-ozempic 0.5mg q7d on sat and tylenol prn-pts states the pt hasnt taken her aspirin 81mg daily-carvedilol 25mg bid-zyrtec 10mg daily-clonidine 0.1mg [id number] 75mg daily-jardiance 10mg qam-fish oil one cap daily-kcl 10meq daily- vitamin 1 tab po daily-crestor 40mg daily-vitamin d3 1000 units daily and valsartan 320mg daily- states not taken in 3 months-er said to remove the medications from the med rec that the pt hasnt taken in 3 months
[2023-06-18 10:34] LABS: INR 0.98 (0.8-1.2)
[2023-06-18 10:35] LABS: Partial Thromboplastin Time 32.2 SECONDS (23.9-36.7)
[2023-06-18 10:36] LABS: Alanine Aminotransferase 10 U/L (0-33); Albumin Level 3.8 g/dL (3.5-5.2); Alkaline Phosphatase 132 U/L (35-105); Anion Gap 14.1 (5-19); Aspartate Amino Transferase 16 U/L (0-32); Blood Urea Nitrogen 12 mg/dL (6-20); Calcium 9.5 mg/dL (8.5-10.5); Carbon Dioxide 29 mmol/L (22-29); Chloride 99 mmol/L (98-107); Globulin 3.4 g/dL (1.3-4.6); Glomerular Filtration Rate 51.8 mL/min (90-130); Glucose 112 mg/dL (65-115); Osmolality Calculated 289 mOsm/kg (285-295); Potassium 3.1 mmol/L (3.5-5.1); Sodium 139 mmol/L (136-145); Total Bilirubin 0.7 mg/dL (0.15-1.2); Total Protein 7.2 g/dL (6.6-8.7)
[2023-06-18] MEDS: labetalol 5 mg/mL SDV 20mL 10 MG IVP (10:59)
[2023-06-18] MEDS: nicardipine 20 MG/200 ML PREMIX 50 MG IV (11:25)
--- NOTE | 2023-06-18 12:16 | PC.NURSE ---
see MAR for drip protocol. Titrated to 3mg/hr. Dr. Boyd notified.
--- NOTE | 2023-06-18 12:27 | P.HP_ITS ---
Providers/Chief Complaint 2 Admitting Physician: Lizeth Ballesteros MD Primary Care Provider: Junior Ayers, ELECTROMEDICAL EQUIPMENT REPAIRER-C Chief Complaint: slurred speech, unstable History of Present Illness Ely Og is a 53 year old female Past medical history of multiple strokes in the past with some deficits, insomnia, type 2 diabetes mellitus, migraines, nicotine dependence, cervical disc disease, obstructive sleep apnea presented to the hospital today for being unsteady on her feet and staggering as per the . She also had slurred speech that was noted this morning. Her last known well was yesterday. says that in the past she has used a walker on and off however in the last 2 months she has been walking all by herself. He has noted a new cough. No fever no sputum production. Patient denies nausea vomiting diarrhea abdominal pain, shortness of breath. She was at Dr. Hanley's office this morning for regular eye checkup and was noted to have slurred speech and therefore was sent to the emergency room. Patient's states that patient fell yesterday as well. Did not hit her head. Patient does have some dysarthria. Scoring NIH 2. She is not a candidate for TNKase. Patient has not been taking her medications for the last few weeks. Blood pressure on arrival 201/109, 16, 82, 97.8, saturating 90% on room air. CT head and CTA head and neck do not show any acute occlusions. There is no evidence of active bleed. Patient has not been taking her medications for the last several weeks including her Plavix. Initial blood pressure in 230 systolic range however that is not documented in the computer. Patient was started on a Cardene drip by ER physician. Medications/Allergies Home Medications Medication Instructions Recorded Confirmed Last Taken Type hydrocodone 5 mg-acetaminophen 325 1 tab PO QPM 05/15/22 06/18/23 Unknown History mg tablet pen needle, diabetic 33 gauge x #100 ea 07/11/22 06/18/23 Unknown Rx insulin glargine 100 unit/mL (3 See Rx Instructions SUBCUT QAM #30 05/07/23 06/18/23 06/18/23 Rx mL) subcutaneous pen (Lantus mL 90 units Solostar U-100 Insulin) acetaminophen 500 mg tablet 1,000 mg PO Q6H PRN Pain 06/18/23 06/18/23 06/17/23 History semaglutide 0.25 mg or 0.5 mg (2 0.5 mg SUBCUT Q7D 06/18/23 06/18/23 06/13/23 History mg/3 mL) subcutaneous pen injector (Ozempic) Allergies Allergy/AdvReac Type Severity Reaction Status Date / Time amlodipine Allergy Unknown Verified 06/18/23 09:49 trazodone Allergy Unknown Verified 06/18/23 09:49 hydrochlorothiazide AdvReac craves Verified 06/18/23 09:49 alcohol lisinopril AdvReac ADR-Headach Verified 06/18/23 09:49 e metformin AdvReac craves Verified 06/18/23 09:49 alcohol spironolactone AdvReac craves Verified 06/18/23 09:49 alcohol Sulfa (Sulfonamide AdvReac ADR-Itching Verified 06/18/23 09:49 Antibiotics) PFSH Acute 2 PFSH: Medical History (Updated 06/18/23 @ 11:30 by Tuan Boyd DO) Diabetes mellitus with hyperglycemia, with long-term current use of insulin History of CVA with residual deficit Insomnia DM type 2 with diabetic dyslipidemia Migraine syndrome Personal history of nicotine dependence Seasonal allergic rhinitis due to pollen Cervical disc disorder with radiculopathy of cervical region KARIN (obstructive sleep apnea) Surgical History History of cholecystectomy History of oral surgery Metal post and frame for denture Family History Other COPD (chronic obstructive pulmonary disease) Cancer Cerebral palsy Diabetes Heart disease Myocardial infarct Stroke Social History Smoking and tobacco/nicotine status: current every day tobacco/nicotine user cigarettes Packs smoked per day: 0.5 Years cigarettes smoked: 17 Second hand smoke exposure: No Alcohol intake: never Substance/Drug Use: never Adopted: Yes Caregiver/support person: No Lives independently: Yes Household members: spouse Housing: House Marital status: Number of children: 0 Number of grandchildren: 0 service: No Current occupational status: unemployed Do you think of yourself as: Straight/Heterosexual Current gender identity: Female Special melisa needs: No Agree to transfusion: Yes Vitals/I&O/Wt Last Vital Signs Temp 97.8 F 06/18/23 09:43 Pulse 92 06/18/23 12:21 Resp 23 H 06/18/23 12:21 BP 173/97 06/18/23 12:21 Pulse Ox 95 06/18/23 12:21 O2 Del Method Room Air 06/18/23 11:02 06/17/23 06/18/23 06/18/23 22:59 06:59 14:59 Intake Total 42.5 / 42.5 Balance 42.5 / 42.5 Weight last 48 hrs Weight 82.554 kg Physical Exam 2 Narrative: No acute distress Lying in bed trying to get comfortable. Says she is feeling cold. Requesting a blanket Normal S1-S2, lungs clear to auscultation bilaterally Abdomen soft nontender at bedside Extremities unremarkable Neuro: Cranial nerves II to XII intact. Pupils bilaterally dilated not responsive to light at this time. What the doctor's office and eyes were dilated for exam. [id number]-laet normal, strength upper lower extremities symmetrical however generally weak.. Follows all commands and answer questions. Alert oriented x 3. Data 06/18/23 10:09 06/18/23 10:09 A&P Assessment and plan (1) Essential hypertension: (2) Accelerated hypertension: (3) DM type 2 with diabetic dyslipidemia: (4) Hypothyroid: Qualifiers: Hypothyroidism type: unspecified Qualified Code(s): E03.9 - Hypothyroidism, unspecified (5) History of CVA with residual deficit: (6) KARIN (obstructive sleep apnea): (7) Fatigue: Qualifiers: Fatigue type: unspecified Qualified Code(s): R53.83 - Other fatigue Plan #Hypertensive urgency #Subacute CVA #History of CVA in the past #History of migraines #Bilateral pupils dilated #Diabetes mellitus type 2, insulin-dependent #Noncompliant to medications #Hypothyroidism #Obstructive sleep apnea ? Continue Cardene drip. Keep blood pressure around 1 60-1 80 systolic for now. ? Allow permissive hypertension for next 24 hours however keep blood pressure below 180 ? May stop Cardene drip and switch to hydralazine IV pushes every 4 hours to keep systolic blood pressure below 180 by the evening ? Patient noncompliant with her medications ? Restart aspirin, Plavix, atorvastatin 80 ? Check echo ? Will check MRI head without contrast to confirm stroke which this may have even done as an outpatient. It will not change her management at this time but will help prognosticate. Patient does have dental implants. Will discuss with radiology to see if MRI can be done. ? PT/OT ? Nursing dysphagia screen ? Official swallow evaluation to be ordered ? Keep n.p.o. till swallow evaluation complete. ? Check TSH, lipid profile, hemoglobin A1c ? Sliding scale insulin low-dose intensity ? Cardiac diabetic diet once able to eat ? Continue IV fluids normal saline 75 cc/h -Patient's did report a cough however nonproductive. I will check a chest x-ray. WBC count 12.25. Possibly reactive versus underlying pneumonia? Possible aspiration?. Will hold off on antibiotic at this time. Continue to monitor patient. Febrile blood antibiotics or if chest x-ray indicates otherwise. -Will check sputum culture Gram stain DNR/DNI. Discussed with patient and her . She does not want any rec measures. DVT prophylaxis: Lovenox 40 daily. Attestations 2 Medical Necessity Statement*: Continue to manage in ICU for hypertensive urgency. Patient on Cardene drip at this time. Also question of subacute stroke. Diagnoses Essential hypertension I10 Accelerated hypertension I10 DM type 2 with diabetic dyslipidemia E11.69; E78.5 Hypothyroidism, unspecified type E03.9 Hypothyroidism type: unspecified History of CVA with residual deficit I69.30 KARIN (obstructive sleep apnea) G47.33 Fatigue, unspecified type R53.83 Fatigue type: unspecified
--- NOTE | 2023-06-18 12:35 | USCV_ITS ---
Ely Og Age: 53 Gender: F : 1970 Exam Date: 06/18/2023 13:49 Ordering Phys: Lizeth Ballesteros MD Technologist: [place] [facility] [place]: cva BP: 134 / 75 HR: 56 Rhythm: Sinus Technical Quality: Adequate MEASUREMENTS (Male / Female) Normal Values 2D ECHO LV Diastolic Diameter PLAX 2.9 cm 4.2 - 5.9 / 3.9 - 5.3 cm IVS Diastolic Thickness 2.1 cm 0.6 - 1.0 / 0.6 - 0.9 cm IVS Systolic Thickness 2.2 cm LVPW Diastolic Thickness 1.9 cm 0.6 - 1.0 / 0.6 - 0.9 cm LVPW Systolic Thickness 2.1 cm LVOT Diameter 2.0 cm LV Ejection Fraction 2D Teich 50.4 % LV Ejection Fraction MOD 2C 62.7 % LV Ejection Fraction 2C AL 65.1 % LA Diameter 2.2 cm RA Systolic Volume 4C AL 28.8 ml RA Systolic Volume 4C MOD 27.6 ml M-MODE LA Ao Ratio MM 1.3 AV Cusp Separation MM 1.9 cm DOPPLER AV Peak Velocity 156.0 cm/s LVOT Peak Velocity 102.0 cm/s AV Area Cont Eq vti 2.6 cm squared AV Area Cont Eq pk 2.1 cm squared MV Area PHT 6.0 cm squared Mitral E to A Ratio 0.7 TV Peak Velocity 108.7 cm/s TR Peak Velocity 137.0 cm/s TR Peak Gradient 7.5 mmHg TV Peak E Velocity 69.0 cm/s PV Peak Velocity 120.0 cm/s FINDINGS Left Ventricle Left ventricle is normal in size. Moderate left ventricular hypertrophy. LV systolic function is normal with EF of 60 to 65%. No regional wall motion abnormality seen. Grade 1 diastolic dysfunction. Right Ventricle Normal in size and function Right Atrium Normal in size Left Atrium Normal in size Mitral Valve Structurally normal mitral valve. Mild mitral regurgitation. Aortic Valve Grossly normal. No significant stenosis or regurgitation. Tricuspid Valve Insufficient TR jet to calculate RVSP Pulmonic Valve Not well visualized Pericardium Normal Aorta Normal in size IVC Appears to be normal CONCLUSIONS Moderate left ventricular hypertrophy. LV systolic function is normal with EF of 60 to 65%. Grade 1 diastolic dysfunction. Mild mitral regurgitation. Elmer Lewis MD (Electronically Signed) Final Date: 19 June 2023 08:48 S
[2023-06-18 12:51] LABS: Add Urine Microscopic? YES; Amphetamines Screen Urine Negative (Negative); Barbiturates Screen Urine Negative (Negative); Benzodiazepines Screen Urine Negative (Negative); Bilirubin Urine 1+ (Negative); Blood Urine Neg (Negative); Cocaine Screen Urine Negative (Negative); Glucose Urine UA Norm (Normal); Ketones Urine Negative (Negative); Leukocyte Esterase Urine Trace (Negative); Nitrate Urine Negative (Negative); Opiate Screen Urine Positive (Negative); PCP Screen Urine Negative (Negative); Protein Urine 1+ (Negative); Specific Gravity, Urine 1.015 (1.005-1.030); THC Screen Urine Negative (Negative); Urine Appearance Clear (CLEAR); Urine Color Yellow (Yellow); Urobilinogen Urine 4 mg/dL (Negative); pH Urine 6.5 (5-7)
[2023-06-18 12:54] LABS: Add Urine Culture? No; RBC Urine 0-4 /hpf (0-2); Squamous Epithelial Cell Urine 0-4 /hpf (0-5); WBC Urine 0-4 /hpf (0-5)
--- NOTE | 2023-06-18 13:30 | PC.NURSE ---
Pt arrived to ICU from ED. Cardene at 3mg/hr infusing. Pt alert and happy.
--- NOTE | 2023-06-18 13:45 | PC.NURSE ---
NIH: unable to assess visual marin at this time as pt's eyes are still dilated from Dr. Hanley office.
--- NOTE | 2023-06-18 13:49 | PC.NURSE ---
NIH scal completed at bedside with nurse Daly.
[2023-06-18] MEDS: enoxaparin 40 mg/0.4 mL Syringe SUBCUT (15:14)
[2023-06-18] MEDS: sodium chloride 0.9% 1,000 ML 75 ML IV (15:16)
[2023-06-18] MEDS: lidocaine 1% 5 ML in potassium chloride premix 100 ML 52.5 ML IV ×2 (15:16→18:06)
[2023-06-18] MEDS: dextrose 10% 250 ML 999 ML IV (17:56)
[2023-06-18 18:07] LABS: Glucose Point of Care 48 mg/dL (70-110)
[2023-06-18 18:07] LABS: Glucose Point of Care 48 mg/dL (70-110)
--- NOTE | 2023-06-18 18:15 | PC.NURSE ---
Pt's blood sugar as 48mg/dl. Notified Dr Ballesteros. Followed hypoglycemia protocol for pt's that are NPO. D0% infusing at 999ml/hr ( highest pump will allow) her Left upper arm /A IV infiltrated at that high rate. New Iv start to left wrist. Removed Left upper arm. Warm compress applied. New Iv tolerating D10% at 700ml/hr.
--- NOTE | 2023-06-18 18:45 | PC.NURSE ---
Bood sugar check much improved. greater than 140mg/dl. Let upper arm puffiness relieved significantly. Pt enjoying compress, left in place. Pt denies any pain, tenderness or other discomfort in her left arm at tis time.
[2023-06-18 19:09] LABS: Glucose Point of Care 145 mg/dL (70-110)
--- NOTE | 2023-06-18 19:09 | PC.NURSE ---
NIH: visual marin, pt stated she has loss of peripheral vision since last stroke. Her speech sounds clearer.
--- NOTE | 2023-06-18 19:48 | PC.NURSE ---
shift summary: Pt rested in bed except for 1 trip to [facility] without difficulty. Her NIH scale remains very low, 2 or less. Her speech can be slightly garbled, she has dental implant posts but no dentures with her at this time. Her huband, Nakul, stated she rarely wore her dentures. She did not pass bedside swallow test this afternoon, she choked on the 4 swallow, her stated she was starting to giggle at that time. Potassium replacement switched to IV instead of PO. Hypoglycemic episode treated and resolved. Urine output of 535ml.
[2023-06-18 20:46] LABS: Glucose Point of Care 75 mg/dL (70-110)
[2023-06-18] MEDS: atorvastatin 40 mg Tablet 80 MG PO (20:49)
[2023-06-18] MEDS: HYDROcodone-acetaminophen 5-325 mg Tablet 1 TAB PO (20:49)
[2023-06-18] MEDS: hyDRALAzine 20 mg/mL INJ 1 mL 10 MG IVP (20:50)
[2023-06-18] MEDS: dextrose 10% 1,000 ML 100 ML IV (20:51)
[2023-06-18 22:59] LABS: Glucose Point of Care 104 mg/dL (70-110)
[2023-06-18 22:59] LABS: Glucose Point of Care 111 mg/dL (70-110)
[2023-06-19] VITALS (42 sets, daily range): BP systolic 139–201; BP diastolic 79–126; PULSE 59–95; RESP 12–20; TEMP 36.3–36.8; O2SAT 90–100
[2023-06-19 00:24] LABS: Glucose Point of Care 141 mg/dL (70-110)
[2023-06-19 01:28] LABS: Glucose Point of Care 132 mg/dL (70-110)
[2023-06-19 02:18] LABS: Glucose Point of Care 129 mg/dL (70-110)
[2023-06-19 03:24] LABS: Glucose Point of Care 135 mg/dL (70-110)
[2023-06-19] MEDS: hyDRALAzine 20 mg/mL INJ 1 mL 10 MG IVP ×2 (04:04→20:06)
[2023-06-19] MEDS: sodium chloride 0.9% 1,000 ML 75 ML IV (04:05)
[2023-06-19 04:18] LABS: Glucose Point of Care 123 mg/dL (70-110)
[2023-06-19 05:03] LABS: Basophils # 0.1 10^3/uL (0.0-0.1); Basophils % 0.5 %; Eosinophils # 0.2 10^3/uL (0.0-0.8); Eosinophils % 1.4 %; Hematocrit 48.7 % (36-47); Lymphocytes # 3.5 10^3/uL (0.8-4.8); Lymphocytes % 30.7 %; Mean Corpuscular HGB Conc 33.1 g/dL (30-55); Mean Corpuscular Hemoglobin 29.5 pg (27-33); Mean Corpuscular Volume 89.2 fl (85-98); Mean Platelet Volume 8.9 fL (7.4-10.4); Monocytes # 0.6 10^3/uL (0.2-0.9); Neutrophils # 7.11 10^3/uL (1.8-7.7); Neutrophils % 61.9 %; Nucleated Red Blood Cells % 0 %; Platelet Count 267 10^3/cmm (157-399); Red Blood Count 5.46 10^6/uL (3.85-5.65); Red Cell Distribution Width 14.9 % (12.1-15.1); White Blood Count 11.49 10^3/uL (3.29-11.43)
[2023-06-19 05:15] LABS: Alanine Aminotransferase 13 U/L (0-33); Albumin Level 3.3 g/dL (3.5-5.2); Alkaline Phosphatase 113 U/L (35-105); Anion Gap 14.3 (5-19); Aspartate Amino Transferase 14 U/L (0-32); Blood Urea Nitrogen 7 mg/dL (6-20); Calcium 8.5 mg/dL (8.5-10.5); Carbon Dioxide 27 mmol/L (22-29); Chloride 101 mmol/L (98-107); Creatinine Clr Calc Pharmacy 77.7312; Globulin 2.6 g/dL (1.3-4.6); Glomerular Filtration Rate 74.7 mL/min (90-130); Glucose 117 mg/dL (65-115); Magnesium 2.1 mg/dL (1.7-2.3); Osmolality Calculated 287 mOsm/kg (285-295); Potassium 3.3 mmol/L (3.5-5.1); Sodium 139 mmol/L (136-145); Total Bilirubin 0.8 mg/dL (0.15-1.2); Total Protein 5.9 g/dL (6.6-8.7)
[2023-06-19 05:28] LABS: Glucose Point of Care 120 mg/dL (70-110)
[2023-06-19 06:13] LABS: Glucose Point of Care 126 mg/dL (70-110)
[2023-06-19 07:51] LABS: Glucose Point of Care 111 mg/dL (70-110)
[2023-06-19] MEDS: dextrose 10% 1,000 ML 100 ML IV (07:54)
[2023-06-19 09:29] LABS: Glucose Point of Care 120 mg/dL (70-110)
--- NOTE | 2023-06-19 09:30 | MR_ITS ---
WS: [id number] MRI HEAD WITHOUT CONTRAST TECHNIQUE: Sagittal T1, T2 axial, T2 axial FLAIR, axial and coronal T1 images, axial susceptibility w eighted imaging, axial diffusion weighted images, and coronal T2 images were obtained. CLINICAL INFORMATION: stroke COMPARISON: CT head 06/18/2023 FINDINGS: Some images degraded by motion artifact. FAST imaging performed. Tiny faint focus of partially restricted diffusion in the LEFT midbrain suspicious for a tiny focus o f acute to subacute ischemia. Otherwise no evidence of restricted diffusion. Ventricular system and b asilar cisterns are patent. Moderate small vessel changes. Mild parenchymal volume loss. Normal poste rior fossa. Normal vascular flow voids at the skull base. No extra-axial fluid collections. No eviden ce of mass or mass effect. Punctate focus of hemosiderin in the RIGHT frontal lobe inferiorly. Normal optic chiasm and pituitary infundibulum. Normal posterior nasopharynx. Mastoid air cells are well ae rated. Chronic infarct with encephalomalacia and gliosis involving the RIGHT parasagittal occipital and post erior temporal lobes. Ex vacuo dilatation of the adjacent ventricle. Tiny chronic lacunar infarcts in the bilateral nguyễn radiata. Small vessel changes in the flores. Chronic lacunar infarcts in the flores . Associated chronic appearing increased signal in the corticospinal tracts in the medulla. IMPRESSION: 1. Tiny faint focus of partially restricted diffusion in the LEFT midbrain at the cerebral peduncle suspicious for a small focus of acute to subacute ischemia. Recommend correlation with clinical sympt oms. 2. Otherwise no evidence of restricted diffusion. 3. Moderate small vessel changes with mild parenchymal volume loss. 4. Chronic infarct RIGHT paracentral occipital and posterior temporal lobes with encephalomalacia an d gliosis. Ex vacuo rotation RIGHT lateral ventricle. 5. Small vessel changes in the flores with chronic lacunar infarcts. 6. No other acute findings.
[2023-06-19] MEDS: clopidogrel 75 mg Tablet PO (10:14)
[2023-06-19] MEDS: pantoprazole 40 mg SDV IVP (10:14)
[2023-06-19] MEDS: aspirin 325 mg EC Tablet PO (10:14)
[2023-06-19] MEDS: lisinopril 20 mg Tablet PO ×2 (10:14→14:06)
[2023-06-19] MEDS: amlodipine 10 mg Tablet PO (10:14)
[2023-06-19 10:42] LABS: Glucose Point of Care 131 mg/dL (70-110)
[2023-06-19 12:05] LABS: Glucose Point of Care 147 mg/dL (70-110)
--- NOTE | 2023-06-19 13:29 | P.PN_ITS ---
Subjective 2 Subjective: This morning. Patient still experiencing slurred speech and has word finding difficulty. MRI done does show tiny field focus of partially restricted diffusion left midbrain at the cerebral peduncle suspicious for a small focus of acute to subacute ischemia. Recommend correlation with clinical symptoms.. Blood pressures are improved.170-90's now oral meds have been ordered Seen by speech. Will do dysphagia level 5 diet. Patient is yet to work with physical therapy. Vitals/I&O/Wt Last Vital Signs Temp 98.2 F 06/19/23 06:00 Pulse 71 06/19/23 10:00 Resp 18 06/19/23 10:00 BP 201/99 06/19/23 10:00 Pulse Ox 92 06/19/23 10:00 O2 Del Method Nasal Cannula 06/19/23 10:00 O2 Flow Rate 2 06/19/23 10:00 06/18/23 06/19/23 06/19/23 22:59 06:59 14:59 Intake Total 195 / 237.5 1961.25 / 2198.75 355 / 355 Output Total 525 / 525 300 / 825 350 / 350 Balance -330 / -287.5 1661.25 / 1373.75 5 / 5 Weight last 48 hrs Weight 77.961 kg Weight 77.961 kg Weight 77.973 kg Weight 82.554 kg Physical Exam 2 Narrative: No acute distress Lying in bed trying to get comfortable. Says she is feeling cold. Requesting a blanket Normal S1-S2, lungs clear to auscultation bilaterally Abdomen soft nontender at bedside Extremities unremarkable Neuro: Cranial nerves II to XII intact. Pupils no longer dilated. Constricted pupils. [id number] normal, strength upper lower extremities symmetrical however generally weak.. Follows all commands and answer questions. Alert oriented x 3. Does have word finding difficulty and mild slurred speech. Data 06/19/23 04:32 06/19/23 04:32 A&P Assessment and plan (1) Essential hypertension: (2) Accelerated hypertension: (3) DM type 2 with diabetic dyslipidemia: (4) Hypothyroid: Qualifiers: Hypothyroidism type: unspecified Qualified Code(s): E03.9 - Hypothyroidism, unspecified (5) History of CVA with residual deficit: (6) KARIN (obstructive sleep apnea): (7) Fatigue: Qualifiers: Fatigue type: unspecified Qualified Code(s): R53.83 - Other fatigue Plan #Hypertensive urgency #Subacute CVA midbrain #History of CVA in the past #History of migraines #Diabetes mellitus type 2, insulin-dependent #Noncompliant to medications #Hypothyroidism #Obstructive sleep apnea ? Cardene drip has been stopped ? Amlodipine 10, lisinopril 40 have been added ? Patient states that she has not taken her medicine since December because she has difficulty swallowing. ? Speech has seen her. She will be on dysphagia level 5 diet and as per nursing staff has done well with that. ? Hopefully she can take her medications crushed. ? She was hypoglycemic despite having no insulin on board. However took her insulin at home. ? Required D10 drip. We will stop D10 drip let patient eat and monitor blood sugar. ? If stable may transfer to floor later today. ? Continue aspirin Plavix atorvastatin 80 ? Echo complete. Shows EF 60 to 65%, grade 1 diastolic dysfunction. - MRI shows: 1. Tiny faint focus of partially restricted diffusion in the LEFT midbrain at the cerebral peduncle suspicious for a small focus of acute to subacute ischemia. Recommend correlation with clinical symptoms. 2. Otherwise no evidence of restricted diffusion. 3. Moderate small vessel changes with mild parenchymal volume loss. 4. Chronic infarct RIGHT paracentral occipital and posterior temporal lobes with encephalomalacia and gliosis. Ex vacuo rotation RIGHT lateral ventricle. 5. Small vessel changes in the flores with chronic lacunar infarcts. 6. No other acute findings. ? PT/OT?pending ? Check TSH, lipid profile, hemoglobin A1c pending ? Sliding scale insulin low-dose intensity ? Cardiac diabetic diet once able to eat, dysphagia level 5 diet. ? Stop IV fluids. -Patient's did report a cough however nonproductive. I believe this is most likely secondary to patient's dysphagia secondary to prior stroke. She may have a pneumonitis. Chest x-ray pending -Will check sputum culture Gram stain ? White count came down to 11,000. Continue to monitor off antibiotics. DNR/DNI. Discussed with patient and her . She does not want any rec measures. DVT prophylaxis: Lovenox 40 daily. May be able to transfer to floor today later on if blood sugars are stable. Attestations 2 Medical Necessity Statement*: Poststroke care and management. Hypoglycemia requiring D10 drip Needs PT OT evaluation Plan for discharge possibly tomorrow. Diagnoses Essential hypertension I10 Accelerated hypertension I10 DM type 2 with diabetic dyslipidemia E11.69; E78.5 Hypothyroidism, unspecified type E03.9 Hypothyroidism type: unspecified History of CVA with residual deficit I69.30 KARIN (obstructive sleep apnea) G47.33 Fatigue, unspecified type R53.83 Fatigue type: unspecified
--- NOTE | 2023-06-19 13:37 | XRR_ITS ---
PROCEDURE INFORMATION: Exam: XR Chest Exam date and time: 06/19/2023 1:53 PM Age: 53 years old Clinical indication: Shortness of breath; Additional info: Aspiration pna? TECHNIQUE: Imaging protocol: Radiologic exam of the chest. Views: 1 view. COMPARISON: CR XR chest 1V 51311 12/05/2017 6:59 PM FINDINGS: Lungs: Unremarkable. No consolidation or mass. Pleural spaces: Unremarkable. No pleural effusion. No pneumothorax. Heart/Mediastinum: Unremarkable. No cardiomegaly. Bones/joints: Unremarkable. XR/XR chest 1V portable [id number] IMPRESSION: No acute findings.
[2023-06-19] MEDS: enoxaparin 40 mg/0.4 mL Syringe SUBCUT (14:06)
[2023-06-19 14:18] LABS: Glucose Point of Care 148 mg/dL (70-110)
--- NOTE | 2023-06-19 14:20 | PC.NURSE ---
D10 Per Dr. Ballesteros, hold D10 infusion until dinner and to see if blood sugar maintains.
[2023-06-19 16:21] LABS: Glucose Point of Care 98 mg/dL (70-110)
[2023-06-19 18:12] LABS: Glucose Point of Care 85 mg/dL (70-110)
[2023-06-19 19:44] LABS: Glucose Point of Care 101 mg/dL (70-110)
[2023-06-19] MEDS: atorvastatin 40 mg Tablet 80 MG PO (20:08)
[2023-06-19] MEDS: HYDROcodone-acetaminophen 5-325 mg Tablet 1 TAB PO (20:14)
[2023-06-19 20:38] LABS: Glucose Point of Care 172 mg/dL (70-110)
[2023-06-19] MEDS: insulin lispro 100 unit/1 mL SUBCUT (20:46)
--- NOTE | 2023-06-19 21:14 | PC.NURSE ---
FLOOR TX Report called to [facility] nurse DORIAN Ann. patient tx to floor by wheelchair accompanied by .
[2023-06-19 21:18] LABS: Glucose Point of Care 169 mg/dL (70-110)
[2023-06-19 22:51] LABS: Glucose Point of Care 132 mg/dL (70-110)
[2023-06-19 23:50] LABS: Glucose Point of Care 137 mg/dL (70-110)
[2023-06-20] VITALS (7 sets, daily range): BP systolic 162–174; BP diastolic 74–89; PULSE 76–86; RESP 14–18; TEMP 36.5–36.9; O2SAT 91–98
[2023-06-20 01:05] LABS: Glucose Point of Care 116 mg/dL (70-110)
[2023-06-20 01:53] LABS: Glucose Point of Care 117 mg/dL (70-110)
[2023-06-20 02:45] LABS: Glucose Point of Care 95 mg/dL (70-110)
[2023-06-20 03:48] LABS: Glucose Point of Care 112 mg/dL (70-110)
[2023-06-20 03:50] LABS: Basophils # 0.1 10^3/uL (0.0-0.1); Basophils % 0.6 %; Eosinophils # 0.2 10^3/uL (0.0-0.8); Eosinophils % 1.9 %; Hematocrit 45.8 % (36-47); Lymphocytes # 3.1 10^3/uL (0.8-4.8); Lymphocytes % 30.7 %; Mean Corpuscular HGB Conc 32.5 g/dL (30-55); Mean Corpuscular Hemoglobin 28.9 pg (27-33); Mean Corpuscular Volume 88.8 fl (85-98); Mean Platelet Volume 9.5 fL (7.4-10.4); Monocytes # 0.7 10^3/uL (0.2-0.9); Neutrophils # 5.97 10^3/uL (1.8-7.7); Neutrophils % 59.3 %; Nucleated Red Blood Cells % 0 %; Platelet Count 266 10^3/cmm (157-399); Red Blood Count 5.16 10^6/uL (3.85-5.65); Red Cell Distribution Width 14.8 % (12.1-15.1); White Blood Count 10.06 10^3/uL (3.29-11.43)
[2023-06-20 04:27] LABS: Magnesium 1.9 mg/dL (1.7-2.3)
[2023-06-20 04:50] LABS: Alanine Aminotransferase 13 U/L (0-33); Albumin Level 3.3 g/dL (3.5-5.2); Alkaline Phosphatase 106 U/L (35-105); Anion Gap 13.4 (5-19); Aspartate Amino Transferase 15 U/L (0-32); Blood Urea Nitrogen 8 mg/dL (6-20); Calcium 8.5 mg/dL (8.5-10.5); Carbon Dioxide 27 mmol/L (22-29); Chloride 104 mmol/L (98-107); Globulin 2.2 g/dL (1.3-4.6); Glomerular Filtration Rate 65.2 mL/min (90-130); Glucose 89 mg/dL (65-115); Osmolality Calculated 290 mOsm/kg (285-295); Potassium 3.4 mmol/L (3.5-5.1); Sodium 141 mmol/L (136-145); Total Bilirubin 0.4 mg/dL (0.15-1.2); Total Protein 5.5 g/dL (6.6-8.7)
[2023-06-20 04:58] LABS: Glucose Point of Care 104 mg/dL (70-110)
[2023-06-20 05:53] LABS: Glucose Point of Care 111 mg/dL (70-110)
[2023-06-20 06:26] LABS: Glucose Point of Care 159 mg/dL (70-110)
[2023-06-20 07:37] LABS: Glucose Point of Care 110 mg/dL (70-110)
[2023-06-20] MEDS: amlodipine 10 mg Tablet PO (10:23)
[2023-06-20] MEDS: aspirin 325 mg EC Tablet PO (10:23)
[2023-06-20] MEDS: clopidogrel 75 mg Tablet PO (10:23)
[2023-06-20] MEDS: pantoprazole 40 mg SDV IVP (10:24)
[2023-06-20 10:56] LABS: Estmated Average Glucose 114; Hemoglobin A1C 5.6 % (4.0-6.0)
--- NOTE | 2023-06-20 11:54 | PC.NURSE ---
Patient became very angry with RT when asked to have a seat due to wobbling and almost fell. Pt stated she wants to leave AMA and requested form. came into the room as advertising writer was talking with pt and stated she's left AMA before . Deer Farmer educated pt on risks and consequences of leaving AMA and pt verbalized understanding and stated yeah I can have another stroke . Dr. Ballesteros made aware.
--- NOTE | 2023-06-20 14:11 | P.DS_ITS ---
Discharge Providers Date of Admission: 06/18/23 14:41 Date of Discharge: June 20, 2023 Attending Provider at Admission: Lizeth Ballesteros MD Attending Provider at Discharge: Lizeth Ballesteros MD Primary Care Provider: ALEXSANDRA Keating Diagnoses at Discharge Discharge Diagnosis (1) Essential hypertension: Status: Chronic (2) Accelerated hypertension: Status: Acute (3) DM type 2 with diabetic dyslipidemia: Status: Chronic (4) Hypothyroid: Status: Chronic Qualifiers: Hypothyroidism type: unspecified Qualified Code(s): E03.9 - Hypothy roidism, unspecified (5) History of CVA with residual deficit: Status: Chronic (6) KARIN (obstructive sleep apnea): Status: Chronic (7) Fatigue: Status: Chronic Qualifiers: Fatigue type: unspecified Qualified Code(s): R53.83 - Other fatigue Reason for Visit Reason for Visit: slurred speech, unstable Hospital Course Hospital Course Patient initially admitted with hypertensive urgency and subacute CVA midbrain which was confirmed on MRI. Echo showed EF 6065% grade 1 diastolic dysfunction. She was also hypoglycemic requiring a D10 drip. Also experienced dysphagia for which she was seen by speech therapy. Patient has chronic dysphagia and therefore does not take her medications as per her. She stated that she has not taken her medication in the last couple of months. She has had history of multiple strokes in the past. Lisinopril and amlodipine were started which did control her blood pressure quite well. However patient refusing to take lisinopril as she states that she gets a headache from it. However after getting the lisinopril she was asked multiple times if she had a headache and she said no. Despite that she still refused to take lisinopril. I discussed with her to switch to hydralazine instead which she was agreeable to. She worked with physical therapy patient is not very steady and has ataxia. Patient would benefit from rehab. Discussed with patient and her this morning over the phone that we will be working with social sciences research scientist to find placement for rehab. agreeable, patient agreeable however after I left the room patient told nurse that she was signing out AMA. signed AMA paperwork for her and stated that she has signed out AMA before and he will just take her home. Notified by nursing staff that patient left. Patient is already left without any discharge instructions, medications. I was caught by surprise when this happened since I had recently seen the patient and she seemed to be agreeable to staying. Discussed with nursing staff as well and was on board with the plan with regarding signing out AGAINST MEDICAL ADVICE and he took her home. Nurse did state to the patient that if you go home and not take her medications do know what will happen. Patient answered back saying yes I will have another stroke and I do not care. I have sent her medications aspirin Plavix, atorvastatin, amlodipine, hydralazine to pharmacy. I hope patient will pick them up. Lantus and Ozempic have been stopped as well. Will have RN call call patient's to notify him of the medications. Patient's A1c is 5.6. She has not required any insulin during hospital stay. She is prone to hypoglycemia if she continues with her Lantus and Ozempic. She does carry a risk of readmission. A copy of the above will be sent to her primary care LUMBER SALVAGER. Junior Ayers. Physical Exam Narrative: No acute distress Neuro exam: Mild dysarthria as previously noted. Otherwise exam nonfocal. Gait not tested. Does have word finding difficulty which is persistent. Normal S1-S2, lungs clear to auscultation bilaterally Abdomen soft nontender at bedside Extremities unremarkable Discharge Data Studies Completed and Pending Completed Studies During Hospitalization Category Date Time Status CT head thrombolytic [id number] Stat Cat Scan 06/18/23 09:38 Completed CTA head neck [CT angio headneck* [id number]] Stat Cat Scan 06/18/23 09:51 Completed XR chest 1V portable [id number] Routine Exams 06/19/23 13:37 Completed MR head wo con* [id number] Routine MRI 06/19/23 09:30 Completed US echo complete [CV. echo complete* 58583] Routine Ultrasound 06/18/23 12:35 Completed Radiology Impressions Chest X-Ray 06/19/23 13:37 IMPRESSION: No acute findings. Laboratory Results WBC 10.06 10^3/uL (3.29-11.43) 06/20/23 03:01 RBC 5.16 10^6/uL (3.85-5.65) 06/20/23 03:01 Hgb 14.90 g/dL (11.27-16.99) 06/20/23 03:01 Hct 45.8 % (36-47) 06/20/23 03:01 MCV 88.8 fl (85-98) 06/20/23 03:01 MCH 28.9 pg (27-33) 06/20/23 03:01 MCHC 32.5 g/dL (30-55) 06/20/23 03:01 RDW 14.8 % (12.1-15.1) 06/20/23 03:01 Plt Count 266 10^3/cmm (157-399) 06/20/23 03:01 MPV 9.5 fL (7.4-10.4) 06/20/23 03:01 Neut % (Auto) 59.3 % 06/20/23 03:01 Lymph % (Auto) 30.7 % 06/20/23 03:01 Morton % (Auto) 7.0 % 06/20/23 03:01 Eos % (Auto) 1.9 % 06/20/23 03:01 Baso % (Auto) 0.6 % 06/20/23 03:01 Neut # (Auto) 5.97 10^3/uL (1.8-7.7) 06/20/23 03:01 Lymph # (Auto) 3.1 10^3/uL (0.8-4.8) 06/20/23 03:01 Morton # (Auto) 0.7 10^3/uL (0.2-0.9) 06/20/23 03:01 Eos # (Auto) 0.2 10^3/uL (0.0-0.8) 06/20/23 03:01 Baso # (Auto) 0.1 10^3/uL (0.0-0.1) 06/20/23 03:01 Nucleated RBC % (auto) 0 % 06/20/23 03:01 Nucleated RBCs # 0.0 /100WBC 06/20/23 03:01 PT 13.30 SECONDS (12.1-14.9) 06/18/23 10:09 INR 0.98 (0.8-1.2) 06/18/23 10:09 APTT 32.2 SECONDS (23.9-36.7) 06/18/23 10:09 Sodium 141 mmol/L (136-145) 06/20/23 03:01 Sodium Cancelled 03/16/24 03:01 Potassium 3.4 mmol/L (3.5-5.1) L 06/20/23 03:01 Potassium Cancelled 06/20/23 03:01 Chloride 104 mmol/L (98-107) 06/20/23 03:01 Chloride Cancelled 06/20/23 03:01 Carbon Dioxide 27 mmol/L (22-29) 06/20/23 03:01 Carbon Dioxide Cancelled 06/20/23 03:01 Anion Gap 13.4 (5-19) 06/20/23 03:01 Anion Gap Cancelled 06/20/23 03:01 BUN 8 mg/dL (6-20) 06/20/23 03:01 BUN Cancelled 06/20/23 03:01 Creatinine 0.9 mg/dL (0.5-0.9) 06/20/23 03:01 Creatinine Cancelled 06/20/23 03:01 GFR Calculation 65.2 mL/min (90-130) L 06/20/23 03:01 GFR Calculation Cancelled 06/20/23 03:01 Glucose 89 mg/dL (65-115) 06/20/23 03:01 Glucose Cancelled 06/20/23 03:01 POC Glucose 110 mg/dL (70-110) 06/20/23 07:30 Estimat Average Glucose 114 06/20/23 03:01 Hemoglobin A1c 5.6 % (4.0-6.0) 06/20/23 03:01 Calculated Osmolality 290 mOsm/kg (285-295) 06/20/23 03:01 Calculated Osmolality Cancelled 06/20/23 03:01 Calcium 8.5 mg/dL (8.5-10.5) 06/20/23 03:01 Calcium Cancelled 06/20/23 03:01 Magnesium 1.9 mg/dL (1.7-2.3) 06/20/23 03:01 Total Bilirubin 0.4 mg/dL (0.15-1.2) 06/20/23 03:01 AST 15 U/L (0-32) 06/20/23 03:01 ALT 13 U/L (0-33) 06/20/23 03:01 Alkaline Phosphatase 106 U/L (35-105) H 06/20/23 03:01 Total Protein 5.5 g/dL (6.6-8.7) L 06/20/23 03:01 Albumin 3.3 g/dL (3.5-5.2) L 06/20/23 03:01 Globulin 2.2 g/dL (1.3-4.6) 06/20/23 03:01 Urine Color Yellow (Yellow) 06/18/23 11:38 Urine Appearance Clear (CLEAR) 06/18/23 11:38 Urine pH 6.5 (5-7) 06/18/23 11:38 Ur Specific [place] 1.015 (1.005-1.030) 06/18/23 11:38 Urine Protein 1+ (Negative) H 06/18/23 11:38 Urine Glucose (UA) Norm (Normal) 06/18/23 11:38 Urine Ketones Negative (Negative) 06/18/23 11:38 Urine Blood Neg (Negative) 06/18/23 11:38 Urine Nitrate Negative (Negative) 06/18/23 11:38 Urine Bilirubin 1+ (Negative) H 06/18/23 11:38 Urine Urobilinogen 4 mg/dL (Negative) H 06/18/23 11:38 Ur Leukocyte Esterase Trace (Negative) H 06/18/23 11:38 Urine RBC 0-4 /hpf (0-2) H 06/18/23 11:38 Urine WBC 0-4 /hpf (0-5) H 06/18/23 11:38 Ur Squamous Epith Cells 0-4 /hpf (0-5) H 06/18/23 11:38 Amorphous Sediment Not Reportable 06/18/23 11:38 Urine Bacteria None /hpf (NONE) 06/18/23 11:38 Urine Mucus None /hpf 06/18/23 11:38 Urine Opiates Screen Positive ng/mL (Negative) H 06/18/23 11:38 Ur Barbiturates Screen Negative ng/mL (Negative) 06/18/23 11:38 Ur Phencyclidine Scrn Negative ng/mL (Negative) 06/18/23 11:38 Ur Amphetamines Screen Negative ng/mL (Negative) 06/18/23 11:38 U Benzodiazepines Scrn Negative ng/mL (Negative) 06/18/23 11:38 Urine Cocaine Screen Negative ng/mL (Negative) 06/18/23 11:38 U Marijuana (THC) Screen Negative ng/mL (Negative) 06/18/23 11:38 Vitals Last Vital Signs Temp 98.3 F 06/20/23 08:00 Pulse 79 06/20/23 11:00 Resp 14 06/20/23 08:00 BP 168/89 06/20/23 08:00 Pulse Ox 98 06/20/23 10:50 O2 Del Method Room Air 06/20/23 10:50 O2 Flow Rate 2 06/19/23 19:30 Discharge Plan Discharge Patient Disposition: Left Against Medical Advice Condition: Stable Prescriptions: New aspirin 81 mg capsule 81 mg PO DAILY Qty: 30 0RF amlodipine 10 mg tablet 10 mg PO DAILY Qty: 30 0RF atorvastatin 80 mg tablet 80 mg PO DAILY Qty: 30 0RF clopidogrel [Plavix] 75 mg tablet 75 mg PO DAILY Qty: 21 0RF hydralazine 50 mg tablet 50 mg PO TID Qty: 90 0RF Continued (DME) pen needle, diabetic 33 gauge x 5/32 needle See Rx Instructions .ROUTE .MEDSUPPLY Qty: 100 5RF Rx Instructions: 4 times day Tylenol Ex Str Rapid Release 500 mg Tablet 1,000 mg PO Q6H PRN (Reason: Pain) Discontinued insulin glargine [Lantus Solostar U-100 Insulin] 100 unit/mL (3 mL) insulin pen See Rx Instructions SUBCUT QAM Qty: 30 2RF Rx Instructions: up to 100 Units subcutaneously every morning hydrocodone-acetaminophen 5-325 mg tablet 1 tab PO QPM Ozempic 0.25 mg or 0.5 mg (2 mg/3 mL) pen injector 0.5 mg SUBCUT Q7D Rx Instructions: on sat Referrals: Abigail Coley MD [Physician] - 4-7 days Junior Ayers FNP-C [Primary Care Provider] - 1-3 days Discharge Diet: Soft Mechanical Discharge Activity: Limit activity as instructed and As per PT/OT instructions Discharge Attestations Time Spent in Discharge Care*: greater than 30 min Quality Metrics Clinical Quality Measures [ Cerebrovascular Accident (Patient signed out AMA) { Contraindication to Antithrombotic: None; antithrombotic prescribed; Contraindication to Anticoagulation: Overlap treatment not indicated; Contraindication to Statin: None; Statin prescribed; Contraindication to antithrombotic day 2: None; Antithrombotic given day 2; Contraindication to tPA: Did not meet criteria; Symptom Onset Unknown: No; Reason stroke education not provided: Other (Signed out AMA); Reason rehab assessment not done: Patient refused (Signed out AMA)}] Coding Level of Care Code 33975 Total time (in minutes) for Discharge: 50 Diagnoses Essential hypertension I10 Accelerated hypertension I10 DM type 2 with diabetic dyslipidemia E11.69; E78.5 Hypothyroidism, unspecified type E03.9 Hypothyroidism type: unspecified History of CVA with residual deficit I69.30 KARIN (obstructive sleep apnea) G47.33 Fatigue, unspecified type R53.83 Fatigue type: unspecified
--- NOTE | 2023-06-20 14:43 | PC.NURSE ---
Florist Designer spoke with pt Andrew on the phone at [phone] Ballesteros wants pt to stop taking Lantus and Ozempic and that new prescriptions were sent into pharmacy of choice on file. Andrew verbalized understanding and appreciation for calling.
== END 2023-06-20 11:58 | disposition left against medical advice (07) | DRG 65 ==
LOC: ER 11:30 → ICU 12:27 → MEDSURG 06-19 20:56
PROVIDERS: Admitting Provider Internal Medicine; Emergency Provider Family Medicine; PCP Nurse Practitioner; Visit Provider Internal Medicine
DX: I63.9 Cerebral infarction, unspecified (principal); G81.91 Hemiplegia, unspecified affecting right dominant side; R29.810 Facial weakness; R27.0 Ataxia, unspecified; R47.81 Slurred speech; R29.702 NIHSS score 2; E11.649 Type 2 diabetes mellitus with hypoglycemia without coma; Z79.4 Long term (current) use of insulin; I16.0 Hypertensive urgency; F17.210 Nicotine dependence, cigarettes, uncomplicated; I69.391 Dysphagia following cerebral infarction; Z91.148 Patient's other noncompliance with medication regimen for other reason; Z66 Do not resuscitate; E03.9 Hypothyroidism, unspecified; E78.5 Hyperlipidemia, unspecified; G47.33 Obstructive sleep apnea (adult) (pediatric); G43.909 Migraine, unspecified, not intractable, without status migrainosus
CPT/HCPCS: 36415; 36416; 70450; 70496; 70498; 70551; 71045; 80053; 80306; 81001; 82962; 83036; 83735; 85025; 85610; 85730; 92523; 92610; 93005; 93306; 96361; 96372; 96374; 97116; 97161; 97167; 97530; 99285; C9113; J0360; J1650; J1815; J3480; J3490; J7030; J7799; Q9967

== ENCOUNTER → 2023-07-02 14:14 | Outpatient (BNVA) | payer OTHER, SELFPAY | PROVIDERS: PCP Nurse Practitioner; Visit Provider Nurse Practitioner | DX: E11.65 Type 2 diabetes mellitus with hyperglycemia (principal); Z79.4 Long term (current) use of insulin; I10 Essential (primary) hypertension; I63.9 Cerebral infarction, unspecified | CPT/HCPCS: 80048; 82962 ==

== ENCOUNTER → 2023-07-30 10:19 | Outpatient (BNVA) | payer OTHER, SELFPAY | PROVIDERS: PCP Nurse Practitioner; Visit Provider Nurse Practitioner | DX: I10 Essential (primary) hypertension (principal) | CPT/HCPCS: 80053; 80061 ==

== ENCOUNTER → 2023-10-06 13:40 | Outpatient (BNVA) | payer OTHER, SELFPAY | PROVIDERS: PCP Nurse Practitioner; Visit Provider Nurse Practitioner | DX: E11.65 Type 2 diabetes mellitus with hyperglycemia (principal); Z79.4 Long term (current) use of insulin; I63.9 Cerebral infarction, unspecified; I69.30 Unspecified sequelae of cerebral infarction; E11.9 Type 2 diabetes mellitus without complications | CPT/HCPCS: 80053; 83036 ==

== ENCOUNTER → 2023-12-22 09:34 | Outpatient (BNVA) | payer OTHER, SELFPAY | PROVIDERS: PCP Nurse Practitioner; Visit Provider Nurse Practitioner | DX: I10 Essential (primary) hypertension (principal) | CPT/HCPCS: 80053; 80061; 83036 ==

== ENCOUNTER → 2024-03-08 11:31 | Outpatient (BNVA) | payer OTHER, SELFPAY | PROVIDERS: PCP Nurse Practitioner; Visit Provider Nurse Practitioner | DX: E11.9 Type 2 diabetes mellitus without complications (principal) | CPT/HCPCS: 80053; 80061; 83036 ==

== ENCOUNTER → 2024-06-02 09:58 | Outpatient (BNVA) | payer OTHER, SELFPAY | PROVIDERS: PCP Nurse Practitioner; Visit Provider Nurse Practitioner | DX: E11.65 Type 2 diabetes mellitus with hyperglycemia (principal); Z79.4 Long term (current) use of insulin; E11.9 Type 2 diabetes mellitus without complications | CPT/HCPCS: 80053; 83036 ==

== ENCOUNTER → 2024-08-31 09:41 | Outpatient (BNVA) | payer OTHER, SELFPAY | PROVIDERS: PCP Nurse Practitioner; Visit Provider Nurse Practitioner | DX: E11.65 Type 2 diabetes mellitus with hyperglycemia (principal); Z79.4 Long term (current) use of insulin | CPT/HCPCS: 80053; 80061; 82043; 83036 ==

== ENCOUNTER → 2024-09-08 09:09 | Outpatient (BNVA) | payer OTHER, SELFPAY | PROVIDERS: PCP Nurse Practitioner; Visit Provider Nurse Practitioner | DX: E87.6 Hypokalemia (principal) | CPT/HCPCS: 80048 ==

== ENCOUNTER → 2024-09-27 15:31 | Outpatient (BNVA) | payer OTHER, SELFPAY | PROVIDERS: Absent Provider Nurse Practitioner; PCP Nurse Practitioner | DX: M79.89 Other specified soft tissue disorders (principal) | CPT/HCPCS: 73630 ==

== ENCOUNTER → 2024-11-22 09:39 | Outpatient (BNVA) | payer OTHER, SELFPAY | PROVIDERS: PCP Nurse Practitioner; Visit Provider Nurse Practitioner | DX: E11.65 Type 2 diabetes mellitus with hyperglycemia (principal) | CPT/HCPCS: 80053; 83036 ==

== ENCOUNTER 2025-01-23 13:57 | Outpatient (RCR) | payer OTHER, SELFPAY | END 2025-02-03 23:59 | disposition home or self-care (01) | LOC: APT 13:57 | PROVIDERS: PCP Nurse Practitioner; Visit Provider General Practice | DX: M50.10 Cervical disc disorder with radiculopathy, unspecified cervical region (principal) | CPT/HCPCS: 97163 ==

== ENCOUNTER → 2025-02-14 10:23 | Outpatient (BNVA) | payer OTHER, SELFPAY | PROVIDERS: PCP Nurse Practitioner; Visit Provider Nurse Practitioner | DX: E11.65 Type 2 diabetes mellitus with hyperglycemia (principal); Z79.4 Long term (current) use of insulin | CPT/HCPCS: 80053; 80061; 83036 ==

== ENCOUNTER 2025-02-28 13:52 | Outpatient (RCR) | payer OTHER, SELFPAY | END 2025-03-05 23:59 | disposition home or self-care (01) | LOC: APT 13:52 | PROVIDERS: PCP Nurse Practitioner; Visit Provider General Practice | DX: M50.10 Cervical disc disorder with radiculopathy, unspecified cervical region (principal) | CPT/HCPCS: 97110 ==

== ENCOUNTER 2025-03-14 12:51 | Outpatient (RCR) | payer OTHER, SELFPAY | END 2025-03-23 08:47 | disposition home or self-care (01) | LOC: APT 12:51 | PROVIDERS: PCP Nurse Practitioner; Visit Provider General Practice | DX: M50.10 Cervical disc disorder with radiculopathy, unspecified cervical region (principal) | CPT/HCPCS: 97110 ==